=== PATIENT | male | born 1950 | race Caucasian/White ===

== ENCOUNTER 2018-03-05 22:27 | Inpatient (IN) | payer MEDICARE, BC ==
[2018-03-05 22:50] LABS: #Basophils 0.1 thou/uL (0.0-0.2); #Eosinphils 0.3 thou/uL (0.0-0.7); #Lymphocytes 1.8 thou/uL (1.20-3.40); #Monocytes 0.5 thou/uL (0.11-0.59); #Neutrophils 3.1 thou/uL (1.40-6.50); %Basophils 1.7 % (0.0-1.0); %Eosinophils 4.5 % (0.0-10.0); %Lymphocytes 30.8 % (21.0-51.0); %Monocytes 8.7 % (0.0-10.0); %Neutrophils 54.3 % (42.0-75.0); Hemoglobin 15.7 g/dL (14.0-18.0); Mean Corpuscular HGB CONC 33.6 g/dL (32.0-36.0); Mean Corpuscular Hemoglobin 30.7 pg (27.0-31.0); Mean Corpuscular Volume 91.5 fL (78.0-98.0); Mean Platelet Volume 6.8 fL (7.4-10.4); Platelet Count 228 thou/uL (130-400); RBC Distribution Width 11.4 % (11.5-14.5); Red Blood Cell (RBC) Count 5.11 mill/uL (4.70-6.10); White Blood Cell (WBC) Count 5.7 thou/uL (4.8-10.8)
[2018-03-05] MEDS ORDERED: Nitroglycerin 2% Ointment 1 INCH/1 GM Packet ONE (23:08)
[2018-03-05] MEDS ORDERED: Nitroglycerin 0.4 MG TAB (25 Tab Bottle) ONE (23:08)
[2018-03-05 23:11] LABS: CKMB 2.9 ng/mL (0-6.6); Troponin I 0.037 ng/mL (< 0.028)
[2018-03-05 23:12] LABS: ALT (SGPT) 18 U/L (8-55); AST (SGOT) 22 U/L (5-34); Albumin 4.4 g/dL (3.4-4.8); Alkaline Phosphatase 50 U/L (40-150); Anion Gap 15 mmol/L (10-20); BUN (Urea Nitrogen) 14 mg/dL (8.4-25.7); Bilirubin, Total 0.5 mg/dL (0.2-1.2); CK (CPK) 120 U/L (30-200); Calc. Creatinine Clearance 0 mL/min (70-130); Calcium 9.6 mg/dL (7.8-10.44); Carbon Dioxide 22 mmol/L (23-31); Chloride 107 mmol/L (98-107); Estimated GFR-MDRD 75; Globulin 3.3 g/dL (2.4-3.5); Glucose 137 mg/dL (80-115); Potassium 4.4 mmol/L (3.5-5.1); Protein, Total 7.7 g/dL (5.8-8.1); Sodium 140 mmol/L (136-145)
--- NOTE | 2018-03-05 23:14 | RAD ---
PORTABLE CHEST: History: Chest pain FINDINGS: Heart size and mediastinum are within normal limits. Lungs are clear of infiltrates. There are no sig ns of failure. An azygous lobe is incidentally seen. Post-operative changes of both shoulders. IMPRESSION: No active intrathoracic disease. POS: [facility]
[2018-03-06 02:38] LABS: Troponin I 0.396 ng/mL (< 0.028)
[2018-03-06] MEDS: Enoxaparin Sodium 100 MG/ML SYRINGE SC SCH ×2 (03:06→16:53)
[2018-03-06 05:14] LABS: Troponin I 0.524 ng/mL (< 0.028)
[2018-03-06] MEDS ORDERED: Atorvastatin Calcium 20 MG TAB PO SCH (05:45)
[2018-03-06] MEDS ORDERED: Lisinopril 10 MG TAB PO SCH (05:45)
--- NOTE | 2018-03-06 07:59 | HP ---
PRIMARY CARE PROVIDER: [facility] call admission for [facility]. HISTORY OF PRESENT ILLNESS: The patient has not seen a physician in many years, presents with pain i n his left upper chest, vague into his left shoulder, into his left arm, lasted a couple of hours off and on came and went. No associated symptoms of nausea, sweats, etc. PAST MEDICAL HISTORY: No medical problems. MEDICATIONS: None. ALLERGIES: None. PAST SURGICAL HISTORY: Abdominal surgery x2 for umbilical hernia, bilateral carpal tunnel surgery, b ilateral shoulder surgery for rotator cuff problems. Lumbar spine surgery L1-L3. FAMILY HISTORY: Only coronary artery disease in his father at 87 who . No diabetes. SOCIAL HISTORY: , no tobacco, no alcohol. CODE STATUS: Full code status. next of kin. REVIEW OF SYSTEMS: GENERAL: No headaches, dizziness or fainting. EYES: No double vision, blurred vision, flashing lights. ENT: No ear pain or drainage. No nasal bleeding. No trouble swallowing. CARDIAC: No pressure, chest pain, orthopnea or paroxysmal nocturnal dyspnea. RESPIRATORY: No cough, wheezing or asthma. GASTROINTESTINAL: No nausea, vomiting, abdominal pain, diarrhea or constipation. GENITOURINARY: No hematuria, dysuria. MUSCULOSKELETAL: No pain or swelling in his legs. PSYCHIATRIC: No anxiety, depression. NEUROLOGICAL: No strokes, seizures or focal weakness. SKIN: No bruising, bleeding or rash. HEME/LYMPH: No tender or swollen lymph nodes in axilla, inguinal or cervical area. PHYSICAL EXAMINATION: GENERAL: Alert, cooperative, pleasant gentleman. at bedside. VITAL SIGNS: Blood pressure 157/84, pulse 50-60, respirations 14-18. HEENT: Reveal pupils equal, round, and reactive to light. Extraocular movements are intact. Sclera e white. Tympanic membranes clear. Nose clear. Throat clear. NECK: Supple, without jugular venous distention, adenopathy or thyromegaly. CHEST: Clear to auscultation and percussion. HEART: Regular rate and rhythm. First and second heart sounds are clear. There are no murmurs or g allops. ABDOMEN: Soft, bowel sounds are normal. There is no hepatosplenomegaly, no mass, no rebound. EXTREMITIES: Reveal no cyanosis, clubbing or edema. PULSES: Carotid, radial, femoral, and dorsalis pedis pulses intact. SKIN: Warm and dry without bruises or rash. HEME/LYMPH: No tender or swollen lymph nodes in axilla, inguinal or cervical area. NEUROLOGIC: Cranial nerves II-XII are intact. Moves all extremities. EKG normal, reviewed by me. Chest x-ray: No cardiomegaly, CHF or infiltrate, reviewed by me. LABORATORY: CBC normal. Comp metabolic profile normal except for a CO2 of 22 and a glucose of 137. Cardiac enzymes, troponin, 0.037, 0.396, 0.524, 0.444. ADMITTING DIAGNOSES: 1. Chest pain, acute coronary syndrome. 2. Elevated blood pressure. PLAN: The patient has been given aspirin and Lovenox. The patient is n.p.o., we will discuss with C ardiology telecommunications facility examiner before ordering stress test or cardiac catheterization.
[2018-03-06] MEDS ORDERED: Ondansetron PF 4 MG/2 ML Vial IVP PRN (08:12)
[2018-03-06] MEDS ORDERED: Acetaminophen 325 MG TAB PO PRN (08:12)
[2018-03-06] MEDS ORDERED: Zolpidem Tartrate 5 MG TAB PO PRN (08:12)
--- NOTE | 2018-03-06 11:28 | CON ---
DATE OF CONSULTATION: 03/06/2018 CARDIOLOGY CONSULTATION INDICATION FOR CONSULTATION: A 67-year-old patient with chest pain. HISTORY OF PRESENT ILLNESS: This very pleasant appearing gentleman was going to mosque yesterday when he noticed some pain in his left upper chest area, which radiated down to the left arm, lasted a couple of hours. He reported to the hospital. EKG is unremarkable. Cardiac enzymes are indeterminate. He has had no previous cardiac history that we are aware of. He did smoke in the past , but stopped many years ago. He has not seen a physician for many years. He is uncertain about his cholesterol level, but was always told in the past that it was okay. He has no history of diabetes or hypertension according to the patient. He has been not taking any medications recently as he has not been followed by the physician. ALLERGIES: None. PAST MEDICAL HISTORY: Significant for a hernia repair and then repeat hernia repair for repair. He has had bilateral carpal tunnel syndrome repair, bilateral shoulder surgery for rotator cuff problems. He has also had a lower back surgery, L1-L3. FAMILY HISTORY: Unremarkable for any early heart disease. He had his father who at 87 years old who apparently had some history of coronary artery disease. SOCIAL HISTORY: He is . He has no alcohol or tobacco abuse. He is retired. REVIEW OF SYSTEMS: A 12-point review of systems is unremarkable except what was noted in the history of the present illness. PHYSICAL EXAMINATION: GENERAL: Reveals a very pleasant, well-developed, well-nourished gentleman, who is in no acute distress. He is alert and oriented. VITAL SIGNS: Blood pressure 131/75, he is afebrile, heart rate is 55 and regular, respirations are 20, O2 saturation 96%. HEENT: Shows the head to be normocephalic and atraumatic. Carotid pulses are present. There were no bruits. There is no JVD. The thyroid is not enlarged. Oral mucosa appeared to be pink and moist. CHEST: Clear to auscultation without rales, rhonchi or wheezing. CARDIOVASCULAR: Exam reveals a regular rate and rhythm with normal S1 and S2. I cannot hear an S3 nor an S4. There were no significant murmurs, heaves, thrills, bruits or rubs. ABDOMEN: Shows a well-healed surgical incision after hernia repairs. He has positive bowel sounds. There is no organomegaly or masses noted. Femoral pulses are present. EXTREMITIES: Show no clubbing, cyanosis or edema. Pedal pulses are also present. NEUROLOGIC: The patient appears to be intact. LABORATORY AND X-RAY FINDINGS: EKG shows a sinus rhythm with no acute changes. His laboratory data shows a hemoglobin of 15.7, WBC of 5.7. Troponin I is indeterminate at 0.037, increased up to a peak of 0.5 and is decreasing down to 0.44. MB was 2.9. His potassium is 4.4. Blood sugar was 137, which is somewhat elevated obviously, he will to have further evaluation. ASSESSMENT AND PLAN: 1. Chest pain, somewhat atypical, but with minimal risk factors of coronary artery disease. He did smoke in the past. He is a male over 55 years old and has some elevation of the blood sugar, which may indicate diabetes. We will plan at this time for a stress test since the cardiac enzymes are now trending downwards and MB remained normal. If the stress test is abnormal, then he will need to undergo cardiac catheterization. 2. History of abnormal blood sugars. We will need to follow this to ensure that the patient does not have diabetes and if so, we will need to start medications. I do not see a recent cholesterol level on this patient. He says he has not had a cholesterol problem in the past, but I am not sure that he knows whether or not he does have hypercholesterolemia. Please note also that the patient did tell me that he did have a history of hemochromatosis . He has given blood several times, but there are no records of this that I can determine and also at this time, the hemoglobin is slightly elevated, but not significantly as one would expect with hemochromatosis. He may need further evaluation or GI evaluation consultation to determine the true diagnosis of whether or not he has hemochromatosis or not. He does not have any liver tenderness. The liver enzymes appear to be normal. MTDD
[2018-03-06] MEDS: Aspirin 325 MG TAB PO SCH (12:08)
[2018-03-06] MEDS ORDERED: Regadenoson 0.4 MG/5 ML SYRINGE ONE (12:13)
[2018-03-06 13:32] LABS: Hemoglobin 14.9 g/dL (14.0-18.0); Platelet Count 223 thou/uL (130-400)
[2018-03-06 13:44] LABS: Calc. Creatinine Clearance 118 mL/min (70-130); Estimated GFR-MDRD Greater than 90
--- NOTE | 2018-03-06 14:18 | NM ---
NUCLEAR MEDICINE CARDIAC STRESS AND EJECTION FRACTION: HISTORY: Chest pain. COMPARISON: None. TECHNIQUE: Stress and rest performed after the intravenous administration of 33 and 10.6 mCi 99m sestamibi. There is adequate left ventricular uptake of radiotracer. There is scar of the left ventricular apex as well as sujit-infarct ischemia. There is hypokinesia of the inferior wall and apex. The ejection fraction is 56%. IMPRESSION: 1. Scar of the left ventricular apex with sujit-infarct ischemia. 2. Hypokinesia of the inferior wall and apex. 3. Ejection fraction 56%. POS: [facility]
--- NOTE | 2018-03-06 14:34 | PDOC.EVN ---
Event Note - Event Note Event Note: stress test pos, cath tomorrow. iron studies, HgA1c, lipid profile ordered
[2018-03-06 15:10] LABS: Cardiac Risk 4.9 (Less than 4.5)
[2018-03-06] MEDS: Atorvastatin Calcium 20 MG TAB PO SCH (20:40)
[2018-03-07] MEDS: Aspirin 325 MG TAB PO SCH (03:42)
[2018-03-07] MEDS: Lisinopril 10 MG TAB PO SCH (03:42)
[2018-03-07 04:15] LABS: Anion Gap 12 mmol/L (10-20); BUN (Urea Nitrogen) 14 mg/dL (8.4-25.7); Calc. Creatinine Clearance 100 mL/min (70-130); Carbon Dioxide 24 mmol/L (23-31); Chloride 106 mmol/L (98-107); Estimated GFR-MDRD 80; Glucose 124 mg/dL (80-115); Potassium 3.9 mmol/L (3.5-5.1); Sodium 138 mmol/L (136-145)
[2018-03-07] MEDS ORDERED: Lidocaine 1% (PF) 30 ML VIAL ONE (07:06)
[2018-03-07] MEDS ORDERED: Heparin 10,000 UNITS/1 ML VIAL ONE (08:36)
[2018-03-07] MEDS ORDERED: Nitroglycerin 100MG/250ML BOT 250 ML ONE (08:36)
[2018-03-07] MEDS ORDERED: Verapamil 5 MG/2 ML VIAL ONE (08:36)
[2018-03-07] MEDS ORDERED: Acetaminophen/Codeine 30-300mg Tablet PO PRN ×2 (09:45)
[2018-03-07] MEDS ORDERED: Carvedilol 3.125 MG TAB PO SCH ×3 (09:45→17:00)
[2018-03-07] MEDS ORDERED: Nitroglycerin 0.4 MG TAB (25 Tab Bottle) SL PRN (09:45)
[2018-03-07] MEDS ORDERED: Sodium Chloride 0.9% 200 ML IV SCH (09:45)
[2018-03-07] MEDS ORDERED: traMADol HCl 50 MG TAB PO PRN (09:45)
--- NOTE | 2018-03-07 10:03 | PDOC.PN ---
- Subjective Encounter Start Date: 03/07/18 Encounter Start Time: 10:00 Patient lying in bed with family members at bedside, he recently returned from [facility] which found multi-vessel disease. He denies chest pain, shortness of breath at this time. He denies having PCP, but a local PCP list will be provided to patient prior to discharge. No nausea/vomiting/diarrhea. - Objective Resuscitation Status: Resuscitation Status FULL:Full Resuscitation MAR Reviewed: Yes Vital Signs & Weight: Vital Signs (12 hours) Temp Pulse Resp BP BP Pulse Ox 03/07/18 07:15 98.2 F 53 L 16 127/71 97 03/07/18 03:42 141/85 H 03/07/18 03:38 98.1 F 58 L 18 141/85 H 98 Weight Weight 198 lb 3.2 oz I&O: 03/06/18 03/07/18 03/08/18 06:59 06:59 06:59 Intake Total 60 950 Output Total 525 Balance -465 950 Result Diagrams: 03/06/18 07:11 03/07/18 03:42 Radiology Reviewed by me: Yes EKG Reviewed by me: Yes Phys Exam - Physical Examination Constitutional: NAD HEENT: PERRLA, moist MMs, sclera anicteric, oral pharynx no lesions Neck: no nodes, no JVD, supple Respiratory: no wheezing, no rales, no rhonchi, clear to auscultation bilateral Cardiovascular: RRR, no significant murmur, no rub, gallop Gastrointestinal: soft, non-tender Musculoskeletal: no edema, pulses present Neurological: non-focal, normal sensation, moves all 4 limbs Lymphatic: no nodes Psychiatric: normal affect, A&O x 3 Skin: no rash, normal turgor, cap refill <2 seconds Dx/Plan (1) CAD (coronary artery disease) Code(s): I25.10 - ATHSCL HEART DISEASE OF [place] CORONARY ARTERY W/O ANG PCTRS Status: Acute (2) Multi-vessel coronary artery stenosis Code(s): I25.10 - ATHSCL HEART DISEASE OF [place] CORONARY ARTERY W/O ANG PCTRS Status: Acute (3) HTN (hypertension) Code(s): I10 - ESSENTIAL (PRIMARY) HYPERTENSION Status: Acute Qualifiers: Hypertension type: essential hypertension Qualified Code(s): I10 - Essential (primary) hypertension - Plan cont current plan of care, plan discussed w/ family * Patient s/p LHC, it was determined patient suffering from multi-vessel disease at that time. Dr Colon consult placed for Dr Paiz CV surgery for further evaluate patient for possible CABG. * Continue optimum medical management with ASA, Lipitor, Coreg and Lisinopril. * Cardiology services following along s/p C * Provide PCP list to patient as he will require appropriate f/u at outpatient
--- NOTE | 2018-03-07 10:16 | PDOC.EVN ---
Event Note - Event Note Event Note: pos cath, probable CABG. discussed status and plan with Trino SANCHEZ
[2018-03-07] MEDS ORDERED: Iopamidol 370 76% 100 ML VIAL ONE (11:26)
[2018-03-07] MEDS ORDERED: Communication Order-Pharmacy FS SCH (13:50)
[2018-03-07] MEDS ORDERED: Diazepam 5 MG TAB PO PRN (13:50)
[2018-03-07] MEDS: Carvedilol 3.125 MG TAB PO SCH (18:35)
--- NOTE | 2018-03-07 20:28 | CON ---
DATE OF CONSULTATION: 03/07/2018 REASON FOR CONSULTATION: Evaluate the patient for coronary artery bypass grafting. HISTORY OF PRESENT ILLNESS: Mr. Reddy is a 67-year-old gentleman who presented with chest pain. He was gathering eggs at home and had unrelenting pain in his left chest and left arm. He could not ge t it to go away and asked his to bring into the emergency room. EKG and enzymes were normal. Mikaela anglin does not have a recent tobacco use history. He has no coronary artery history. He was taken today for cardiac catheterization, which has revealed severe 3-vessel disease. Ejection fraction is appro ximately 60%-65%. I have been asked to see him to discuss coronary artery bypass grafting. PAST MEDICAL HISTORY: Degenerative joint disease. PAST SURGICAL HISTORY: 1. Umbilical hernia repair x2. 2. Bilateral carpal tunnel repairs. 3. Bilateral shoulder surgery for rotator cuff problems. 4. Lumbar spinal surgery performed in [place] SOCIAL HISTORY: He is . He drinks wine that he makes at home. He does not use tobacco. He is retired and works around his place at home. He also plays in a . FAMILY HISTORY: Negative. REVIEW OF SYSTEMS: Ten point review of systems is performed and is negative except as above. PHYSICAL EXAMINATION: GENERAL: Well-developed, well-nourished male, in no acute distress. VITAL SIGNS: Height 5 feet 8 inches, weight 198 pounds, BSA is 2.08. Temperature is 98.3, pulse is 60 and regular, blood pressure 139/75. HEENT: Sclerae nonicteric. Pupils equal, round bilaterally. NECK: Supple. He has no carotid bruits. CHEST: Clear bilaterally. HEART: Rhythm is regular without murmur. ABDOMEN: Soft and nontender without mass. EXTREMITIES: No cyanosis, clubbing or edema. VASCULAR: Palpable carotid, radial, femoral, dorsalis pedis pulses bilaterally. VENOUS: There are no venous varicosities or venous stasis changes. LYMPHATICS: No lymphedema or lymphadenopathy. PSYCHIATRIC: The patient is awake, alert, and oriented to person, place, and time. ASSESSMENT AND PLAN: Mr. Reddy is a 67-year-old gentleman with severe 3-vessel disease and preserve d left ventricular function. Risks, benefits, and options to coronary artery bypass grafting have be en discussed. Potential targets included LAD, D1, D2, ramus, OM, and distal right coronary.
[2018-03-07] MEDS: Atorvastatin Calcium 20 MG TAB PO SCH (21:32)
[2018-03-08] MEDS ORDERED: CEFAZOLIN/Water 2 GM/20 ML SYRINGE ONE (06:04)
[2018-03-08] MEDS: Lisinopril 10 MG TAB PO SCH (06:05)
[2018-03-08] MEDS: Carvedilol 3.125 MG TAB PO SCH ×2 (06:05→16:16)
[2018-03-08] MEDS ORDERED: Vecuronium 10 MG VIAL ONE ×2 (06:22→14:36)
[2018-03-08] MEDS ORDERED: Albumin 5% 500 ML ONE (06:26)
[2018-03-08] MEDS ORDERED: Fentanyl 100 MCG/2 ML VIAL ONE (06:38)
[2018-03-08] MEDS ORDERED: Dexmedetomidine 200 MCG/2 ML VIAL ONE (06:38)
[2018-03-08] MEDS ORDERED: Midazolam HCl 2 mg/2 ml Vial ONE (06:38)
[2018-03-08] MEDS ORDERED: Midazolam HCl 5 mg/5 ml Vial ONE (06:38)
[2018-03-08] MEDS ORDERED: Calcium Chloride 1 GM/10 ML Abboject SYRINGE ONE ×2 (06:58→14:36)
[2018-03-08] MEDS ORDERED: Thrombin 5000 UNITS/5 ML VIAL ONE ×2 (06:58→14:36)
[2018-03-08] MEDS ORDERED: Heparin 10,000 UNITS/1 ML VIAL 30,000 UNITS in Sodium Chloride 0.9% 1,000 ML FS SCH (07:00)
[2018-03-08] MEDS ORDERED: Sodium Chloride 0.9% 10 ML ONE (09:40)
[2018-03-08] MEDS ORDERED: Insulin Regular 300 UNITS/3 ML VIAL ONE (11:19)
[2018-03-08] MEDS ORDERED: Albumin 5% 250 ML ONE (14:11)
[2018-03-08 14:13] LABS: Actual Bicarbonate (HCO3a) 24.7 mEq/L (22-28); Base Excess (BEa) -3.1 mEq/L (-2.0 to +3.0); CO2 Tension 56.4 mmHg (35.0-45.0); Calcium, Ionized 1.12 mmol/L (1.12-1.30); Carboxyhemoglobin (COHb) 1.1 gm% (0.0-3.0); Hemoglobin (Hb) 13.6 g/dL (14.0-18.0); O2 Tension (PaO2) 74.9 mmHg (> 80.0); Potassium - ABG Lab 4.33 mmol/L (3.70-5.30); pH, Arterial 7.26 (7.35-7.45)
[2018-03-08 14:21] LABS: Hemoglobin 13.3 g/dL (14.0-18.0); Platelet Count 132 thou/uL (130-400)
[2018-03-08 14:22] LABS: Puncture Site ALINE
[2018-03-08] MEDS ORDERED: Papaverine 60 MG/2 ML VIAL ONE (14:36)
[2018-03-08] MEDS ORDERED: Sodium Bicarb 50 MEQ/50 ML VIAL ONE (14:36)
[2018-03-08] MEDS ORDERED: Magnesium 5 GM/10 ML VIAL ONE (14:36)
[2018-03-08] MEDS ORDERED: Potassium Chloride 60 MEQ/30 ML VIAL ONE (14:36)
[2018-03-08] MEDS ORDERED: Aminocaproic Acid 5 GM/20 ML VIAL ONE (14:36)
[2018-03-08] MEDS ORDERED: Lidocaine 2% PF 100 mg/5 ml Syringe ONE (14:36)
[2018-03-08] MEDS ORDERED: Heparin 5,000 UNITS/ML VIAL ONE (14:36)
[2018-03-08] MEDS ORDERED: PHENYLEPHRINE-NS 100 MCG/ML 10 ML SYRINGE ONE (14:36)
[2018-03-08] MEDS ORDERED: Ketorolac Tromethamine 30 MG/ML VIAL ONE (14:36)
[2018-03-08] MEDS ORDERED: Mannitol 12.5 GM/50 ML ONE (14:36)
[2018-03-08] MEDS ORDERED: Nitroglycerin 50 MG/250 ML BOT ONE (14:36)
[2018-03-08] MEDS ORDERED: Heparin 30,000 units/30 ml VIAL ONE (14:36)
[2018-03-08] MEDS ORDERED: Protamine Sulfate 250 MG/25 ML VIAL ONE (14:36)
[2018-03-08] MEDS ORDERED: ePHEDrine/0.9% NaCl/PF SYRINGE 50 mg/10 ml ONE (14:36)
[2018-03-08] MEDS ORDERED: Cardioplegic Soln 1,000 ML BAG ONE (14:36)
[2018-03-08 14:47] LABS: Calc. Creatinine Clearance 116 mL/min (70-130); Estimated GFR-MDRD Greater than 90
[2018-03-08 14:58] LABS: Actual Bicarbonate (HCO3a) 22.8 mEq/L (22-28); Base Excess (BEa) -4.3 mEq/L (-2.0 to +3.0); CO2 Tension 49.7 mmHg (35.0-45.0); Calcium, Ionized 1.07 mmol/L (1.12-1.30); Carboxyhemoglobin (COHb) 1.2 gm% (0.0-3.0); Hemoglobin (Hb) 13.5 g/dL (14.0-18.0); O2 Tension (PaO2) 86.2 mmHg (> 80.0); Potassium - ABG Lab 4.14 mmol/L (3.70-5.30); pH, Arterial 7.28 (7.35-7.45)
[2018-03-08 15:00] LABS: ALV-art Gradient 79.835 (0-20); Puncture Site ALINE
[2018-03-08] MEDS: Aspirin 325 MG TAB PO SCH (15:06)
[2018-03-08] MEDS ORDERED: Hetastarch 6% 500 ML 500 ML IVPB PRN (15:19)
[2018-03-08] MEDS ORDERED: Bisacodyl 5 MG TAB PO PRN (15:19)
[2018-03-08] MEDS ORDERED: Phenylephrine 10 MG/NS 250 ML 250 ML IVPB PRN (15:19)
[2018-03-08] MEDS ORDERED: Mag-Al 1200 mg/1200 mg/30 ML UDCUP PO PRN (15:19)
[2018-03-08] MEDS ORDERED: hydrALAZINE 20 MG/ML VIAL SLOW IVP PRN (15:19)
[2018-03-08] MEDS ORDERED: Guaifenesin DM 100-10/5 ML UDCUP PO PRN (15:19)
[2018-03-08] MEDS ORDERED: D5 1/2 NS w/20 mEq KCL 1,000 ML IV SCH (15:19)
[2018-03-08] MEDS ORDERED: Nitroglycerin 50 MG/250 ML BOT 250 ML IVPB PRN (15:19)
[2018-03-08] MEDS ORDERED: Fentanyl 100 MCG/2 ML VIAL SLOW IVP PRN ×2 (15:19)
[2018-03-08] MEDS ORDERED: Post-Op Insulin Drip Protocol IVPB ONE (15:19)
[2018-03-08] MEDS ORDERED: Potassium Chloride 20 MEQ/100 ML PREMIX BAG IVPB PRN (15:19)
[2018-03-08] MEDS ORDERED: Bisacodyl 10 MG SUPP PR PRN (15:19)
[2018-03-08] MEDS ORDERED: HYDROcodone/Acetaminophen 5/325 mg Tablet PO PRN (15:19)
[2018-03-08] MEDS ORDERED: Magnesium 2 GM/50 ML 2 GM in Premix Bag 1 BAG IVPB SCH (15:19)
[2018-03-08] MEDS ORDERED: Promethazine HCl 25 MG/ML VIAL IM PRN (15:19)
[2018-03-08] MEDS ORDERED: Acetaminophen 325 MG TAB PO PRN (15:19)
[2018-03-08] MEDS ORDERED: Norepinephrine 8 MG/0.9% NS 250 ML IVPB PRN (15:19)
[2018-03-08] MEDS ORDERED: Ondansetron PF 4 MG/2 ML Vial IVP PRN (15:19)
[2018-03-08 15:27] LABS: #Basophils 0.1 thou/uL (0.0-0.2); #Eosinphils 0.1 thou/uL (0.0-0.7); #Lymphocytes 1.5 thou/uL (1.20-3.40); %Basophils 0.5 % (0.0-1.0); %Eosinophils 0.8 % (0.0-10.0); %Monocytes 8.2 % (0.0-10.0); %Neutrophils 77.4 % (42.0-75.0); Hemoglobin 13.3 g/dL (14.0-18.0); Mean Corpuscular HGB CONC 32.9 g/dL (32.0-36.0); Mean Corpuscular Hemoglobin 30.5 pg (27.0-31.0); Mean Corpuscular Volume 92.7 fL (78.0-98.0); Mean Platelet Volume 6.9 fL (7.4-10.4); Platelet Count 130 thou/uL (130-400); RBC Distribution Width 11.3 % (11.5-14.5); Red Blood Cell (RBC) Count 4.35 mill/uL (4.70-6.10); White Blood Cell (WBC) Count 11.7 thou/uL (4.8-10.8)
[2018-03-08 15:33] LABS: INR-International Normal Ratio 1.2; PTT 29.6 SEC (22.9-36.1); Prothrombin Time 15.5 SEC (12.0-14.7)
[2018-03-08] MEDS ORDERED: Dextrose 5% in Water 1,000 ML IV PRN (15:35)
[2018-03-08] MEDS ORDERED: Dextrose 50% Abboject 50 ML SYRINGE SLOW IVP PRN (15:35)
[2018-03-08] MEDS ORDERED: Insulin Regular 300 UNITS/3 ML VIAL SC PRN (15:35)
[2018-03-08] MEDS: CEFAZOLIN/Water 2 GM/20 ML SYRINGE SLOW IVP SCH ×2 (15:53→23:18)
[2018-03-08 16:02] LABS: Anion Gap 11 mmol/L (10-20); BUN (Urea Nitrogen) 12 mg/dL (8.4-25.7); Calc. Creatinine Clearance 115 mL/min (70-130); Calcium 7.5 mg/dL (7.8-10.44); Carbon Dioxide 21 mmol/L (23-31); Chloride 113 mmol/L (98-107); Estimated GFR-MDRD Greater than 90; Glucose 114 mg/dL (80-115); Potassium 4.5 mmol/L (3.5-5.1); Sodium 140 mmol/L (136-145)
--- NOTE | 2018-03-08 16:05 | RAD ---
CHEST 1 VIEW: Date: 03/08/18 COMPARISON: 03/05/18. HISTORY: Status post open heart surgery. FINDINGS: Portable supine chest radiograph demonstrates sternotomy wires, mediastinal drainage catheter, and a right-sided central venous catheter. Normal cardiac silhouette. Pulmonary vessels and hilum are wily l. Small right-sided pleural effusion suspected. No pneumothorax on this supine projection. IMPRESSION: Findings compatible with recent open heart surgery. POS: [facility]
--- NOTE | 2018-03-08 17:14 | PDOC.CTH ---
Cardiology Progress Note - Subjective Pt. back from OR, s/p CABG x 6. Extubated and awake. No complaints at present. - Objective Vital Signs Temp Pulse Resp BP BP Pulse Ox 03/08/18 16:00 96.3 F L 03/08/18 14:27 96 03/08/18 14:15 97 03/08/18 06:05 145/78 H 03/08/18 05:20 97.7 F 71 16 125/70 97 Weight 197 lb 3.2 oz 03/07/18 03/08/18 03/09/18 06:59 06:59 06:59 Intake Total 950 440 270 Output Total 375 620 Balance 950 65 -350 - Physical Examination General/Neuro: alert & oriented x3 Neck: carotid US brisk Lungs: CTA Heart: RRR Abdomen: NT/ND - Labs Result Diagrams: 03/08/18 14:07 03/08/18 14:07 Troponin/CKMB CK-MB (CK-2) 2.9 ng/mL (0-6.6) 03/05/18 22:39 Troponin I 0.440 ng/mL (< 0.028) H* 03/06/18 07:11 - Assessment/Plan 1.CAD: s/p CABG x 6. TOMLINSON to LAD mid and distal(jump), SVG -> Ramus-Diag. ( jump), SVG-> OM, SVG-> distal RCA. 2. HTN: stable. Resume prior meds when taking po. Suggest betablockers, Lcua-I.
[2018-03-08] MEDS: Ketorolac Tromethamine 30 MG/ML VIAL IVP SCH ×2 (17:32→23:18)
--- NOTE | 2018-03-08 18:53 | OP ---
DATE OF SERVICE: 03/08/2018 PREOPERATIVE DIAGNOSIS: Coronary artery disease. POSTOPERATIVE DIAGNOSIS: Coronary artery disease. PROCEDURES: Coronary artery bypass grafting x6: 1. Left internal mammary artery in sequence to 1.25 mm mid LAD and 1.25 mm distal LAD. 2. Reverse saphenous vein in sequence to 1.5 mm ramus and 1.5 mm diagonal 3. Reverse saphenous vein to 1.5 mm OM. 4. Reverse saphenous vein to 2.0 mm distal RCA. SURGEONS: Marcell Paiz M.D. and Papa Lay MD ANESTHESIA: General endotracheal, Dr. Diony Mack. PUMP TIME: 88 minutes. CROSS-CLAMP TIME: 53 minutes. LOW CORE TEMP: 32-degree Celsius. DIGITAL TECHNICIAN: Di Odell. DRAINS: 24-[place] chest tubes x2. DRIPS: None. TRANSFUSIONS: None. PROCEDURE IN DETAIL: After consent was obtained, the patient was brought to operating room and place d in the supine position on the operating room table. Appropriate anesthetic monitor was placed and general anesthesia induced. Chest, abdomen, and legs were prepped and draped in usual sterile fashio n. Greater saphenous vein was harvested from the left lower extremity utilizing an endoscopic techni que from groin to ankle. Wounds irrigated and closed in layers. Median sternotomy was performed. L eft internal mammary artery was harvested as a pedicle graft. The patient was systemically hepariniz ed. Distal pedicle was divided and infused with papaverine. Thymic fat and pericardium were divided with electrocautery. Pericardial stay sutures were placed. Aortic and atrial cannulation performed . After adequate heparinization, retrograde prime was performed. The patient was placed on cardiopu lmonary bypass. Distal targets were marked. Aortic cross-clamp was applied and an antegrade sanguin ous cardioplegic arrest obtained. One liter of antegrade cold [place] cardioplegia was given. Topi vandana cold solution was used. Reverse saphenous vein was anastomosed to distal RCA and saphenous runni ng 7-0 Prolene suture. Anastomosis was tested and was hemostatic. Reverse saphenous vein was anasto mosed to OM in end-to-side fashion with running 7-0 Prolene suture. Anastomosis was tested and was h emostatic. A sequential saphenous vein was then anastomosed in a yioa-ly-ffrc fashion with the ramus in end-to-side fashion with the diagonal with 7-0 Prolene suture. Anastomoses were inspected and th ey were hemostatic. Mammary artery was then anastomosed in a sequential fashion with the mid LAD in a amfj-vl-exeg fashion and the distal LAD in end-to-side fashion with running 7-0 Prolene suture. An astomoses were inspected and they were good hemostasis . On release of the mammary clamps, good distal flow. Cross-clamp was removed and partial occluding clamp placed. Saphenous vein to the OM and right coronary were anastomosed to aortic root. The sequential saphenous vein was anastomosed to the martins of the OM graft. Partial occluding clamp was removed and grafts deaired. Anastomoses were inspected for hemostasis, which was good. The patient was warmed and weaned from cardiopulmonary by pass. After resumption of sinus rhythm, good hemodynamics, and temperature greater than 36.5, bypass was discontinued. Transfusions were given. A 24-[place] chest tubes x2 were placed in mediastinum. Decannulation was performed and pursestring sutures secured. Vancomycin paste was placed on the milena rnal edges. Hemostasis was vigorously ensured within the mediastinum. Sternum was then closed with #7 wire. Sternum was treated with platelet-rich plasma and wires twisted. Wounds were irrigated, tr eated with platelet-poor plasma, and closed in multiple layers. Needle, sponge, and instrument count s were all reported as correct at the end of the procedure. The patient was awakened, extubated, and transferred to the intensive care unit in stable condition.
[2018-03-08] MEDS: Atorvastatin Calcium 20 MG TAB PO SCH (20:43)
[2018-03-08] MEDS ORDERED: Famotidine/PF 20 mg/2ml Vial SLOW IVP SCH (21:00)
[2018-03-08 21:23] LABS: Hemoglobin 12.8 g/dL (14.0-18.0)
[2018-03-08 21:35] LABS: Potassium 4.4 mmol/L (3.5-5.1)
[2018-03-09] MEDS: HYDROcodone/Acetaminophen 5/325 mg Tablet PO PRN ×2 (00:16→10:17)
[2018-03-09] MEDS ORDERED: HEXTEND 6% LR 500ML 500 ML IVPB PRN (01:15)
[2018-03-09 04:46] LABS: Anion Gap 6 mmol/L (10-20); BUN (Urea Nitrogen) 15 mg/dL (8.4-25.7); Calc. Creatinine Clearance 109 mL/min (70-130); Calcium 7.5 mg/dL (7.8-10.44); Carbon Dioxide 25 mmol/L (23-31); Chloride 111 mmol/L (98-107); Estimated GFR-MDRD Greater than 90; Glucose 123 mg/dL (80-115); Potassium 4.3 mmol/L (3.5-5.1); Sodium 138 mmol/L (136-145)
[2018-03-09 04:55] LABS: #Lymphocytes 1.2 thou/uL (1.20-3.40); #Monocytes 0.5 thou/uL (0.11-0.59); #Neutrophils 4.4 thou/uL (1.40-6.50); %Eosinophils 0.5 % (0.0-10.0); %Lymphocytes 19.7 % (21.0-51.0); %Monocytes 8.6 % (0.0-10.0); %Neutrophils 71.1 % (42.0-75.0); Hemoglobin 10.5 g/dL (14.0-18.0); Mean Corpuscular HGB CONC 33.2 g/dL (32.0-36.0); Mean Corpuscular Hemoglobin 30.8 pg (27.0-31.0); Mean Corpuscular Volume 92.8 fL (78.0-98.0); Mean Platelet Volume 6.6 fL (7.4-10.4); Platelet Count 111 thou/uL (130-400); RBC Distribution Width 11.2 % (11.5-14.5); White Blood Cell (WBC) Count 6.2 thou/uL (4.8-10.8)
[2018-03-09] MEDS: Ketorolac Tromethamine 30 MG/ML VIAL IVP SCH ×3 (05:34→18:37)
--- NOTE | 2018-03-09 08:01 | PDOC.PN ---
- Subjective Encounter Start Date: 03/09/18 Encounter Start Time: 07:59 Subjective: doing great, up in chair - Objective Resuscitation Status: Resuscitation Status FULL:Full Resuscitation MAR Reviewed: Yes Vital Signs & Weight: Vital Signs (12 hours) Temp Pulse Ox 03/09/18 04:00 99.0 F 03/09/18 00:00 98.6 F 03/08/18 20:00 97.2 F L 99 Weight Weight 214 lb 8.156 oz Most Recent Monitor Data Heart Rate from ECG 91 NIBP 107/72 NIBP BP-Mean 83 Respiration from ECG 18 SpO2 98 I&O: 03/08/18 03/09/18 03/10/18 06:59 06:59 06:59 Intake Total 440 1813 Output Total 375 1505 Balance 65 308 Result Diagrams: 03/09/18 04:24 03/09/18 04:24 Additional Labs: Accuchecks 03/09/18 03/09/18 03/08/18 04:19 00:31 19:44 POC Glucose 126 H 111 H 100 03/08/18 03/08/18 03/08/18 14:10 13:44 12:37 POC Glucose 108 109 135 H 03/08/18 03/08/18 03/08/18 11:55 11:18 10:16 POC Glucose 162 H 179 H 116 H Phys Exam - Physical Examination Neck: no JVD Respiratory: clear to auscultation bilateral chest tubes in place Cardiovascular: RRR, no significant murmur Gastrointestinal: soft, positive bowel sounds Neurological: non-focal Dx/Plan (1) Dyslipidemia Code(s): E78.5 - HYPERLIPIDEMIA, UNSPECIFIED Status: Acute (2) Status post aorto-coronary artery bypass graft Code(s): Z95.1 - PRESENCE OF AORTOCORONARY BYPASS GRAFT Status: Acute (3) CAD (coronary artery disease) Code(s): I25.10 - ATHSCL HEART DISEASE OF [place] CORONARY ARTERY W/O ANG PCTRS Status: Acute Qualifiers: Coronary Disease-Associated Artery/Lesion type: ute artery [place] vs. transplanted heart: ute heart Associated angina: without angina Qualified Code(s): I25.10 - Atherosclerotic heart disease of [place] coronary artery without angina pectoris (4) HTN (hypertension) Code(s): I10 - ESSENTIAL (PRIMARY) HYPERTENSION Status: Acute Qualifiers: Hypertension type: essential hypertension Qualified Code(s): I10 - Essential (primary) hypertension (5) Multi-vessel coronary artery stenosis Code(s): I25.10 - ATHSCL HEART DISEASE OF [place] CORONARY ARTERY W/O ANG PCTRS Status: Acute - Plan post cabg day 1, doing well -: needs asa, statin, b-courtney, RONALDO -: cont to follow * .
--- NOTE | 2018-03-09 08:42 | PDOC.CTH ---
<Sally Aguilar - Last Filed: 03/09/18 08:42> Cardiology Progress Note - Subjective The pt seen and examined. No overnight events. No cardiac complaints. He is up to chair this AM without any difficulties. - Objective Vital Signs Temp 03/09/18 04:00 99.0 F 03/09/18 00:00 98.6 F Weight 214 lb 8.156 oz 03/08/18 03/09/18 03/10/18 06:59 06:59 06:59 Intake Total 440 1813 Output Total 375 1505 Balance 65 308 - Physical Examination General/Neuro: alert & oriented x3 Neck: no JVD present Lungs: CTA Heart: RRR Abdomen: soft Extremities: other: (No edema) - Labs Result Diagrams: 03/09/18 04:24 03/09/18 04:24 Troponin/CKMB CK-MB (CK-2) 2.9 ng/mL (0-6.6) 03/05/18 22:39 Troponin I 0.440 ng/mL (< 0.028) H* 03/06/18 07:11 - Assessment/Plan 1. CAD with s/p CABG x 6 on 03/08/18 with TOMLINSON to LAD mid and distal(jump), SVG -> Ramus-Diag. ( jump), SVG-> OM, SVG-> distal RCA. On BBlocker, RONALDO, ASA 325mg qd, and Lipitor 40mg qd. 2. HTN: stable with current meds; cont. to monitor 3. Dyslipidemia: on Statin MAR reviewed Review of Systems - Review of Systems Constitutional: reports: no symptoms reported EENTM: reports: no symptoms reported Respiratory: reports: no symptoms reported Cardiac (ROS): reports: no symptoms reported ABD/GI: reports: no symptoms reported : reports: no symptoms reported Musculoskeletal: reports: no symptoms reported <Daryl Colon - Last Filed: 03/09/18 18:31> Cardiology Progress Note - Objective Vital Signs Temp Pulse Resp BP BP Pulse Ox 03/09/18 16:00 97.7 F 66 15 102/58 L 99 03/09/18 15:00 99 03/09/18 11:00 98.3 F 03/09/18 10:16 145/78 H 03/09/18 08:00 99 F 84 L Weight 214 lb 8.156 oz 03/08/18 03/09/18 03/10/18 06:59 06:59 06:59 Intake Total 440 1813 970 Output Total 375 1505 860 Balance 65 308 110 - Labs Result Diagrams: 03/09/18 04:24 03/09/18 04:24 Troponin/CKMB CK-MB (CK-2) 2.9 ng/mL (0-6.6) 03/05/18 22:39 Troponin I 0.440 ng/mL (< 0.028) H* 03/06/18 07:11 - Assessment/Plan Pt. seen and eval. by me. I agree with the A/P by the LEAN LEADER. He is doing well s/p CABG. Chest clear. RRR.
[2018-03-09] MEDS ORDERED: Aspirin 325 MG TAB PO SCH (09:00)
--- NOTE | 2018-03-09 09:53 | RAD ---
PORTABLE CHEST: HISTORY: Postop open heart surgery. COMPARISON: 03/18/2018 study. FINDINGS: Heart size is enlarged. There are postop sternotomy changes. The right subclavian line is unchanged in position. No infiltrative process. IMPRESSION: Essentially stable exam. POS: [facility]
[2018-03-09] MEDS: Carvedilol 3.125 MG TAB PO SCH ×2 (10:14→17:11)
[2018-03-09] MEDS: Lisinopril 10 MG TAB PO SCH (10:16)
[2018-03-09] MEDS: Furosemide 40 MG TAB PO SCH ×2 (10:16→15:24)
[2018-03-09] MEDS: Famotidine 20 MG TAB PO SCH ×2 (10:18→20:55)
[2018-03-09] MEDS: CEFAZOLIN/Water 2 GM/20 ML SYRINGE SLOW IVP SCH (10:19)
--- NOTE | 2018-03-09 11:50 | CON ---
DATE OF CONSULTATION: 03/09/2018 SERVICE: Pulmonary Medicine. REASON FOR CONSULTATION: ICU patient. HISTORY OF PRESENT ILLNESS: The patient is a 67-year-old white male with past medical history significant for coronary artery disease. He presented to the hospital on 03/06/2018 with complaints of chest discomfort. He underwent a nuclear stress test. This was abnormal, prompting a cardiac catheterization. This demonstrated severe coronary artery disease. He underwent a coronary artery bypass graft yesterday. He is recovering very nicely from that procedure. He currently has some chest discomfort with deep breathing and coughing, but outside of this, he is actually doing remarkable. His biggest complaint right now is right wrist pain. When he underwent cardiac catheterization, his wrist was hyperextended. This is now causing numbness in the first, second, third and half of the fourth digit. If it were not for that discomfort, he feels like he would have gotten some refreshing sleep last night. He denies any fevers or chills. He is coughing a little bit and bringing up some clear sputum. This seems to be new over the past 24 hours. PAST MEDICAL HISTORY: Coronary artery disease. PAST SURGICAL HISTORY: 1. Coronary artery bypass graft x6 vessels. 2. Abdominal surgery x2 for umbilical hernia. 3. Carpal tunnel surgery, bilateral. 4. Right wrist surgery, removing of bone from the wrist and placing it in a different area. 5. Shoulder surgery, bilateral for rotator cuff injuries. 6. Lumbar spine surgery, L1-L3. FAMILY HISTORY: Noncontributory. SOCIAL HISTORY: Negative for alcohol, tobacco or illicit drug use. He has no exposure to chemicals, dust, asbestos or tuberculosis. He is retired currently. He previously had a career as a law enforcement agent. ALLERGIES: No known drug allergies. MEDICATIONS: List of his inpatient medications were reviewed. No specific updates were made at this time. REVIEW OF SYSTEMS: General, head, ears, eyes, nose, throat, cardiovascular, respiratory, GI, , musculoskeletal, neurologic and skin is negative except as mentioned in the HPI. PHYSICAL EXAMINATION: VITAL SIGNS: Afebrile with a T-max of 99.0, pulse 85, blood pressure 109/73, respirations 15, saturation 95% on room air. GENERAL: The patient is awake and alert, in no apparent distress. LUNGS: Decent air entry. There is no prolonged expiratory phase or wheezing present. HEART: Normal rate, regular. ABDOMEN: Soft, nontender, nondistended. Bowel sounds are positive. MUSCULOSKELETAL: No cyanosis or clubbing. There is trace pitting in the bilateral lower extremities. NEUROLOGIC: Grossly nonfocal. LABORATORY DATA: WBC 6.2, hemoglobin 10.5, platelets 111,000. INR 1.2. PH 7.28, pCO2 49, pO2 86. Basic metabolic profile is otherwise unremarkable. Calcium 7.5. Ferritin is reduced. Cardiac enzymes are abnormal and previously were trending downward to 0.4. Liver function studies were unremarkable. IMAGING: Chest x-ray today demonstrates sternotomy wires are now present. Right-sided subclavian central venous catheter terminates in good position. Mediastinal drain is identified x2. ASSESSMENT: 1. Acute hypoxic and hypercapnic respiratory failure, resolved. 2. Coronary artery disease. 3. Coronary artery bypass graft x6 vessels, postop day 1. 4. 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 5. Obstructive sleep apnea, strongly suspected. DISCUSSION AND PLAN: I will put the patient on some gabapentin. Outside of this, routine postop management will be continued. Hopefully, the discomfort in the wrist will start to ebb away slowly. If it does not, we may need to consider advanced imaging. Pulmonary Critical Care will continue to follow along in this location. Of note, the patient has multiple features consistent with horrendous sleep apnea. We talked about what sleep apnea is, the risks of having [id number] sleep apnea (heart disease, dementia, stroke and kidney disease), but the patient is adamant that he would not be able to tolerate having anything on his face while sleeping at night and so he does not want to undergo a polysomnogram. Pulmonary will continue to follow in this location. 70 minutes have been devoted to this patient in various activities. I personally reviewed all imaging studies and laboratory data noted within this document. For fifty percent of this time, I was interacting with the patient at the bedside or coordinating care with the care team. For the remainder of the time I was immediately available to the patient in the hospital unit. FRANSISCO
[2018-03-09] MEDS: Magnesium 2 GM/50 ML 2 GM in Premix Bag 1 BAG IVPB SCH (13:36)
[2018-03-09] MEDS: Gabapentin 300 MG CAP PO SCH ×2 (15:01→20:55)
[2018-03-09] MEDS ORDERED: Mag-Al 1200 mg/1200 mg/30 ML UDCUP PO PRN (15:05)
[2018-03-09] MEDS ORDERED: Acetaminophen 325 MG TAB PO PRN (15:05)
[2018-03-09] MEDS ORDERED: Zolpidem Tartrate 5 MG TAB PO PRN (15:05)
[2018-03-09] MEDS ORDERED: Nitroglycerin 0.4 MG TAB (25 Tab Bottle) SL PRN (15:05)
[2018-03-09] MEDS ORDERED: Mineral Oil ENEMA PR PRN (15:05)
[2018-03-09] MEDS ORDERED: Bisacodyl 10 MG SUPP PR PRN (15:05)
[2018-03-09] MEDS ORDERED: Milk Of Magnesia 30 ML UDCUP PO PRN (15:05)
[2018-03-09] MEDS ORDERED: diphenhydrAMINE 25 MG CAP PO PRN (15:05)
[2018-03-09] MEDS ORDERED: Fentanyl 100 MCG/2 ML VIAL SLOW IVP PRN ×2 (15:05)
[2018-03-09] MEDS ORDERED: Guaifenesin DM 100-10/5 ML UDCUP PO PRN (15:05)
[2018-03-09] MEDS ORDERED: HYDROcodone/Acetaminophen 5/325 mg Tablet PO PRN (15:05)
[2018-03-09] MEDS ORDERED: Artificial Tears 18 DROP/0.9 ML EA EYE PRN (15:05)
[2018-03-09] MEDS ORDERED: Ondansetron PF 4 MG/2 ML Vial IVP PRN (15:05)
[2018-03-09] MEDS: Atorvastatin Calcium 40 MG TAB PO SCH (20:55)
[2018-03-10] MEDS: Ketorolac Tromethamine 30 MG/ML VIAL IVP SCH ×4 (00:02→18:31)
[2018-03-10 08:12] LABS: ALT (SGPT) 14 U/L (8-55); AST (SGOT) 21 U/L (5-34); Albumin 3.1 g/dL (3.4-4.8); Alkaline Phosphatase 24 U/L (40-150); Bilirubin, Direct 0.3 mg/dL (0.1-0.3); Magnesium 2.2 mg/dL (1.6-2.6); Protein, Total 4.4 g/dL (5.8-8.1)
[2018-03-10] MEDS ORDERED: Amiodarone HCl 150 MG, Admixture Fee 1 EACH in Dextrose 5% in Water 100 ML IVPB SCH (08:45)
--- NOTE | 2018-03-10 08:49 | PDOC.CTH ---
<Sally Aguilar - Last Filed: 03/10/18 08:46> Cardiology Progress Note - Subjective The pt seen and examined. No overnight events. No cardiac complaints. - Objective Vital Signs Temp Pulse Resp BP BP Pulse Ox 03/10/18 07:54 98.7 F 92 18 111/66 94 L 03/10/18 05:55 92 L 03/10/18 03:22 98.5 F 71 12 94/54 L 91 L 03/10/18 00:15 90/53 L 03/09/18 23:46 89/53 L Weight 204 lb 11.2 oz 03/09/18 03/10/18 03/11/18 06:59 06:59 06:59 Intake Total 1813 1210 Output Total 1505 860 Balance 308 350 - Physical Examination General/Neuro: alert & oriented x3 Neck: no JVD present Lungs: CTA Heart: other: (irregular) Abdomen: soft Extremities: other: (No edema;) - Telemetry Telemetry Rhythm: Afib 90-120s - Labs Result Diagrams: 03/09/18 04:24 03/09/18 04:24 Troponin/CKMB CK-MB (CK-2) 2.9 ng/mL (0-6.6) 03/05/18 22:39 Troponin I 0.440 ng/mL (< 0.028) H* 03/06/18 07:11 - Assessment/Plan 1. Post-Op Afib since 0540 on 03/10/18 - Start Amiodarone drip protocol. 2. CAD with s/p CABG x 6 on 03/08/18 with TOMLINSON to LAD mid and distal(jump), SVG -> Ramus-Diag. ( jump), SVG-> OM, SVG-> distal RCA. On BBlocker, RONALDO, ASA 325mg qd, and Lipitor 40mg qd. 3. HTN: stable with current meds; cont. to monitor 4. Dyslipidemia: on Statin MAR reviewed Review of Systems - Review of Systems Constitutional: reports: no symptoms reported EENTM: reports: no symptoms reported Respiratory: reports: no symptoms reported Cardiac (ROS): reports: no symptoms reported ABD/GI: reports: no symptoms reported : reports: no symptoms reported Musculoskeletal: reports: no symptoms reported <Daryl Colon - Last Filed: 03/10/18 19:52> Cardiology Progress Note - Objective Vital Signs Temp Pulse Pulse Pulse Resp BP BP 03/10/18 17:20 98.4 F 77 18 03/10/18 14:28 68 83 109/62 116/65 03/10/18 12:11 98.4 F 110 H 18 03/10/18 09:41 79 100 94/60 118/66 03/10/18 09:01 03/10/18 07:54 98.7 F 92 18 BP Pulse Ox Pulse Ox Pulse Ox 03/10/18 17:20 117/66 91 L 03/10/18 14:28 03/10/18 12:11 106/64 92 L 03/10/18 09:41 95 92 L 03/10/18 09:01 94 L 03/10/18 07:54 111/66 94 L Weight 204 lb 11.2 oz 03/09/18 03/10/18 03/11/18 06:59 06:59 06:59 Intake Total 1813 1210 590 Output Total 8186 428 4710 Balance 308 350 -1710 - Labs Result Diagrams: 03/09/18 04:24 03/09/18 04:24 Troponin/CKMB CK-MB (CK-2) 2.9 ng/mL (0-6.6) 03/05/18 22:39 Troponin I 0.440 ng/mL (< 0.028) H* 03/06/18 07:11 - Assessment/Plan Pt. seen and eval. by me. I agree with the a/P by the PROTOTYPE TECHNICIAN but he has now converted back to sinus rhythm after the amiodarone was started.H denies complaints. RRR,chest clear. Watch over the weekend.
[2018-03-10] MEDS: Amiodarone HCl 450 MG, Admixture Fee 1 EACH in Dextrose 5% in Water 250 ML IVPB SCH ×2 (09:07→14:43)
[2018-03-10] MEDS: Famotidine 20 MG TAB PO SCH ×2 (09:25→20:44)
[2018-03-10] MEDS: Gabapentin 300 MG CAP PO SCH ×3 (09:25→20:44)
[2018-03-10] MEDS: Furosemide 40 MG TAB PO SCH ×2 (09:25→14:01)
[2018-03-10] MEDS: Aspirin 325 mg Enteric Coated Tablet PO SCH (09:38)
--- NOTE | 2018-03-10 09:55 | PDOC.PN ---
- Subjective Encounter Start Date: 03/10/18 Encounter Start Time: 07:20 -: old records requested/rev pt has no complaints, but this morning he has afib - Objective Resuscitation Status: Resuscitation Status FULL:Full Resuscitation MAR Reviewed: Yes Vital Signs & Weight: Vital Signs (12 hours) Temp Pulse Resp BP BP Pulse Ox 03/10/18 07:54 98.7 F 92 18 111/66 94 L 03/10/18 05:55 92 L 03/10/18 03:22 98.5 F 71 12 94/54 L 91 L 03/10/18 00:15 90/53 L 03/09/18 23:46 89/53 L Weight Weight 204 lb 11.2 oz Most Recent Monitor Data Heart Rate from ECG 81 NIBP 109/73 NIBP BP-Mean 85 Respiration from ECG 28 SpO2 88 I&O: 03/09/18 03/10/18 03/11/18 06:59 06:59 06:59 Intake Total 1813 1210 Output Total 1505 860 Balance 308 350 Result Diagrams: 03/09/18 04:24 03/09/18 04:24 Additional Labs: Accuchecks 03/09/18 12:55 POC Glucose 123 H Radiology Reviewed by me: Yes EKG Reviewed by me: Yes (afib) Phys Exam - Physical Examination Constitutional: NAD HEENT: PERRLA, moist MMs, sclera anicteric Neck: no JVD, supple Respiratory: no wheezing, no rales, no rhonchi Cardiovascular: no significant murmur, irregular surgical site clean with dressing Gastrointestinal: soft, non-tender, no distention, positive bowel sounds Musculoskeletal: no edema, pulses present Neurological: non-focal, normal sensation, moves all 4 limbs Lymphatic: no nodes Psychiatric: normal affect, A&O x 3 Skin: no rash, normal turgor Dx/Plan (1) NSTEMI (non-ST elevated myocardial infarction) Code(s): I21.4 - NON-ST ELEVATION (NSTEMI) MYOCARDIAL INFARCTION Status: Acute (2) Multi-vessel coronary artery stenosis Code(s): I25.10 - ATHSCL HEART DISEASE OF [place] CORONARY ARTERY W/O ANG PCTRS Status: Acute (3) Status post aorto-coronary artery bypass graft Code(s): Z95.1 - PRESENCE OF AORTOCORONARY BYPASS GRAFT Status: Acute (4) Atrial fibrillation Code(s): I48.91 - UNSPECIFIED ATRIAL FIBRILLATION Status: Acute (5) Dyslipidemia Code(s): E78.5 - HYPERLIPIDEMIA, UNSPECIFIED Status: Chronic (6) HTN (hypertension) Code(s): I10 - ESSENTIAL (PRIMARY) HYPERTENSION Status: Chronic Qualifiers: Hypertension type: essential hypertension Qualified Code(s): I10 - Essential (primary) hypertension (7) Obesity (BMI 30.0-34.9) Code(s): E66.9 - OBESITY, UNSPECIFIED Status: Chronic - Plan cont current plan of care, plan discussed w/ family * cardiology on case, started on amiodaron drip for afib * continue post operative cardiac rehab * CT surgery following * medication reviewed as below * symptomatic treatment * discussed with family. Review of Systems - Review of Systems ENT: negative: Ear Pain, Ear Discharge, Nose Pain, Nose Discharge, Nose Congestion, Mouth Pain, Mouth Swelling, Throat Pain, Throat Swelling, Other Respiratory: negative: Cough, Dry, Shortness of Breath, Hemoptysis, SOB with Excertion, Pleuritic Pain, Sputum, Wheezing Cardiovascular: negative: chest pain, palpitations, orthopnea, paroxysmal nocturnal dyspnea, edema, light headedness, other Gastrointestinal: negative: Nausea, Vomiting, Abdominal Pain, Diarrhea, Constipation, Melena, Hematochezia, Other Genitourinary: negative: Dysuria, Frequency, Incontinence, Hematuria, Retention , Other Musculoskeletal: negative: Neck Pain, Shoulder Pain, Arm Pain, Back Pain, Hand Pain, Leg Pain, Foot Pain, Other Skin: negative: Rash, Lesions, Georges, Bruising, Other - Medications/Allergies Allergies/Adverse Reactions: Allergies Allergy/AdvReac Type Severity Reaction Status Date / Time No Known Allergies Allergy Verified 03/06/18 01:35 Medications: Current Medications Acetaminophen (Tylenol) 650 mg PO Q6H PRN PRN Reason: Headache/Fever or Mild Pain Hydrocodone Bitart/Acetaminophen ([place] 5/325) 2 tab PO Q4H PRN PRN Reason: Severe Pain (7-10) Hydrocodone Bitart/Acetaminophen ([place] 5/325) 1 tab PO Q4H PRN PRN Reason: Moderate Pain (4-6) Al Hydroxide/Mg Hydroxide (Maalox) 30 ml PO Q4H PRN PRN Reason: Indigestion Albuterol/Ipratropium (Duoneb) 3 ml NEB [id number] PRN PRN Reason: Respiratory Distress Artificial Tears (Tears Naturale) 1 drop EA EYE PRN PRN PRN Reason: Dry Eyes Aspirin (Ecotrin) 325 mg PO DAILY [facility] Last Admin: 03/10/18 09:38 Dose: 325 mg Atorvastatin Calcium (Lipitor) 40 mg PO HS [facility] Last Admin: 03/09/18 20:55 Dose: 40 mg Bisacodyl (Dulcolax) 10 mg PO Q12H PRN PRN Reason: Constipation Bisacodyl (Dulcolax) 10 mg [place] Q12H PRN PRN Reason: Constipation Carvedilol (Coreg) 3.125 mg PO BID-[facility] Last Admin: 03/09/18 17:11 Dose: 3.125 mg Diphenhydramine HCl (Benadryl) 25 mg PO Q6H PRN PRN Reason: Itching & Insomnia or [place] A Famotidine (Pepcid) 20 mg PO BID [facility] Last Admin: 03/10/18 09:25 Dose: 20 mg Fentanyl (Sublimaze) 25 mcg SLOW IVP Q2H PRN PRN Reason: Moderate breakthrough pain Fentanyl (Sublimaze) 50 mcg SLOW IVP Q2H PRN PRN Reason: Severe breakthrough pain Furosemide (Lasix) 40 mg PO 0900,1400 [facility] Last Admin: 03/10/18 09:25 Dose: 40 mg Gabapentin (Neurontin) 300 mg PO TID [facility] Last Admin: 03/10/18 09:25 Dose: 300 mg Guaifenesin/Dextromethorphan (Robitussin Dm) 15 ml PO Q4H PRN PRN Reason: Cough Hydralazine HCl (Apresoline) 10 mg SLOW IVP Q6H PRN PRN Reason: To Maintain SBP< 140mmHG Magnesium Sulfate 2 gm/ Device 50 mls @ 50 mls/hr IVPB QAM [facility] Stop: 03/10/18 09:59 Last Admin: 03/09/18 13:36 Dose: 50 mls Amiodarone HCl 450 mg/Miscellaneous Medication 1 each/ Dextrose/Water 259 mls @ 0 mls/hr IVPB INF [facility] Last Admin: 03/10/18 09:07 Dose: 259 mls Amiodarone HCl 150 mg/Miscellaneous Medication 1 each/ Dextrose/Water 103 mls @ 412 mls/hr IVPB ONE DAWN Stop: 03/10/18 10:00 Ketorolac Tromethamine (Toradol) 30 mg IVP Q6HR DAWN Stop: 03/12/18 18:01 Last Admin: 03/10/18 05:49 Dose: 30 mg Magnesium Hydroxide (Milk Of Magnesium) 30 ml PO Q12H PRN PRN Reason: Constipation Mineral Oil (Fleet Mineral Oil) 133 ml [place] DAILYPRN PRN PRN Reason: Constipation Nitroglycerin (Nitrostat) 0.4 mg SL Q5MIN PRN PRN Reason: Chest Pain Ondansetron HCl (Zofran) 4 mg IVP Q6H PRN PRN Reason: Nausea/Vomiting Sodium Chloride (Flush - Normal Saline) 10 ml IVF PRN PRN PRN Reason: Saline Flush Zolpidem Tartrate (Ambien) 5 mg PO HSPRN PRN PRN Reason: Insomnia
[2018-03-10] MEDS: Carvedilol 3.125 MG TAB PO SCH ×2 (11:32→17:35)
[2018-03-10] MEDS: Magnesium 2 GM/50 ML 2 GM in Premix Bag 1 BAG IVPB SCH (11:43)
--- NOTE | 2018-03-10 15:03 | PRG ---
DATE OF SERVICE: 03/10/2018 SERVICE: Pulmonary Medicine. INTERVAL HISTORY: The patient is doing fantastic from a respiratory standpoint. He denies any current chest pain, fevers, chills, shortness of breath. He continues to have a little bit of pain with coughing and deep breathing, but otherwise, there has been no specific interval change to his condition. He has been weaned down to room air. PHYSICAL EXAMINATION: VITAL SIGNS: Afebrile, pulse 92, blood pressure 111/66, respirations 18, saturation 94% on room air. GENERAL: The patient is awake and alert, in no apparent distress. LUNGS: Decent air entry. Minimal dependent crackles are present. There is no prolonged expiratory phase or wheezing present. HEART: Normal rate, regular. ABDOMEN: Soft, nontender, nondistended. Bowel sounds are positive. MUSCULOSKELETAL: No cyanosis or clubbing. There is trace 1+ pitting in the bilateral lower extremities. NEUROLOGIC: Grossly nonfocal. LABORATORY DATA: WBC 6.2, hemoglobin 10.5, platelets 111,000. Liver function studies are essentially unremarkable. His alkaline phosphatase is 24. Magnesium 2.2. ASSESSMENT: 1. Acute hypoxic and hypercapnic respiratory failure, resolved. 2. Coronary artery disease. 3. Coronary artery bypass graft x6 vessels, postop day #2. 4. Atrial fibrillation in the post-op period. 5. Neuropathy of the right wrist, digits 1, 2, 3 and half of 4, consistent with possible median nerve damage. 6. Obstructive sleep apnea, strongly suspected. DISCUSSION AND PLAN: The patient is doing absolutely wonderful from a respiratory standpoint. He has been titrated down to room air. At this point, he has no further requirements for inpatient Pulmonary or Critical Care opinion and I will sign off. Please call with additional questions or concerns moving forward. FRANSISCO
[2018-03-10] MEDS: Atorvastatin Calcium 40 MG TAB PO SCH (20:44)
[2018-03-11] MEDS: Ketorolac Tromethamine 30 MG/ML VIAL IVP SCH ×6 (00:01→17:03)
[2018-03-11] MEDS: Amiodarone HCl 450 MG, Admixture Fee 1 EACH in Dextrose 5% in Water 250 ML IVPB SCH (05:27)
--- NOTE | 2018-03-11 08:19 | EKG ---
Test Reason : S/P CABG Blood Pressure : / mmHG Vent. Rate : 061 BPM Atrial Rate : 061 BPM P-R Int : 158 ms QRS Dur : 110 ms QT Int : 526 ms P-R-T Axes : 075 045 -52 degrees QTc Int : 529 ms Normal sinus rhythm Prolonged QT Abnormal ECG When compared with ECG of 05-MAR-2018 22:38, (Unconfirmed) Sinus rhythm has replaced Junctional rhythm ST now depressed in Anterior leads T wave inversion now evident in Inferior leads T wave inversion now evident in Anterolateral leads QT has lengthened Confirmed by CÉSAR LARA ([id number]) on 03/11/2018 8:19:13 AM Referred By: KHADIJAH DAVIS Confirmed By:CÉSAR LARA
[2018-03-11] MEDS: Gabapentin 300 MG CAP PO SCH ×3 (08:47→21:19)
[2018-03-11] MEDS: Aspirin 325 mg Enteric Coated Tablet PO SCH (08:47)
[2018-03-11] MEDS: Famotidine 20 MG TAB PO SCH ×2 (08:47→21:19)
[2018-03-11] MEDS: Carvedilol 3.125 MG TAB PO SCH (08:47)
[2018-03-11] MEDS: Furosemide 40 MG TAB PO SCH ×2 (08:47→14:01)
--- NOTE | 2018-03-11 10:04 | PDOC.PN ---
- Subjective Encounter Start Date: 03/11/18 Encounter Start Time: 07:40 Patient seen and examined. No new complaints. No overnight events he is converted to nsr yesterday, he feels bloated, but he had good BM yesterday - Objective Resuscitation Status: Resuscitation Status FULL:Full Resuscitation MAR Reviewed: Yes Vital Signs & Weight: Vital Signs (12 hours) Temp Pulse Resp BP BP Pulse Ox 03/11/18 07:48 98 F 75 16 133/62 95 03/11/18 06:45 67 20 111/68 03/11/18 03:15 98.5 F 96 18 133/68 92 L 03/11/18 00:07 71 16 129/81 Weight Weight 216 lb 3.2 oz Most Recent Monitor Data Heart Rate from ECG 81 NIBP 109/73 NIBP BP-Mean 85 Respiration from ECG 28 SpO2 88 I&O: 03/10/18 03/11/18 03/12/18 06:59 06:59 06:59 Intake Total 1210 1742.4 Output Total 860 3550 Balance 350 -1807.6 Result Diagrams: 03/09/18 04:24 03/09/18 04:24 EKG Reviewed by me: Yes (nsr) Phys Exam - Physical Examination Constitutional: NAD HEENT: PERRLA, moist MMs, sclera anicteric Neck: no JVD, supple Respiratory: no wheezing, no rales, no rhonchi surgical site clean Cardiovascular: RRR, no significant murmur, no rub Gastrointestinal: soft, non-tender, no distention, positive bowel sounds Musculoskeletal: no edema, pulses present Neurological: non-focal, normal sensation, moves all 4 limbs Psychiatric: normal affect, A&O x 3 Skin: no rash, normal turgor Dx/Plan (1) NSTEMI (non-ST elevated myocardial infarction) Code(s): I21.4 - NON-ST ELEVATION (NSTEMI) MYOCARDIAL INFARCTION Status: Acute (2) Multi-vessel coronary artery stenosis Code(s): I25.10 - ATHSCL HEART DISEASE OF [place] CORONARY ARTERY W/O ANG PCTRS Status: Acute (3) Status post aorto-coronary artery bypass graft Code(s): Z95.1 - PRESENCE OF AORTOCORONARY BYPASS GRAFT Status: Acute (4) Dyslipidemia Code(s): E78.5 - HYPERLIPIDEMIA, UNSPECIFIED Status: Chronic (5) Atrial fibrillation Code(s): I48.91 - UNSPECIFIED ATRIAL FIBRILLATION Status: Acute (6) HTN (hypertension) Code(s): I10 - ESSENTIAL (PRIMARY) HYPERTENSION Status: Chronic Qualifiers: Hypertension type: essential hypertension Qualified Code(s): I10 - Essential (primary) hypertension (7) Obesity (BMI 30.0-34.9) Code(s): E66.9 - OBESITY, UNSPECIFIED Status: Chronic - Plan cont current plan of care, plan discussed w/ family * continue cardiac rehab * amiodaron drip as per cardiology * medication reviewed as below * symptomatic treatment * monitor on tele. Review of Systems - Review of Systems ENT: negative: Ear Pain, Ear Discharge, Nose Pain, Nose Discharge, Nose Congestion, Mouth Pain, Mouth Swelling, Throat Pain, Throat Swelling, Other Respiratory: negative: Cough, Dry, Shortness of Breath, Hemoptysis, SOB with Excertion, Pleuritic Pain, Sputum, Wheezing Cardiovascular: negative: chest pain, palpitations, orthopnea, paroxysmal nocturnal dyspnea, edema, light headedness, other Gastrointestinal: negative: Nausea, Vomiting, Abdominal Pain, Diarrhea, Constipation, Melena, Hematochezia, Other Genitourinary: negative: Dysuria, Frequency, Incontinence, Hematuria, Retention , Other Musculoskeletal: negative: Neck Pain, Shoulder Pain, Arm Pain, Back Pain, Hand Pain, Leg Pain, Foot Pain, Other Skin: negative: Rash, Lesions, Georges, Bruising, Other - Medications/Allergies Allergies/Adverse Reactions: Allergies Allergy/AdvReac Type Severity Reaction Status Date / Time No Known Allergies Allergy Verified 03/06/18 01:35 Medications: Current Medications Acetaminophen (Tylenol) 650 mg PO Q6H PRN PRN Reason: Headache/Fever or Mild Pain Hydrocodone Bitart/Acetaminophen ([place] 5/325) 2 tab PO Q4H PRN PRN Reason: Severe Pain (7-10) Hydrocodone Bitart/Acetaminophen ([place] 5/325) 1 tab PO Q4H PRN PRN Reason: Moderate Pain (4-6) Al Hydroxide/Mg Hydroxide (Maalox) 30 ml PO Q4H PRN PRN Reason: Indigestion Albuterol/Ipratropium (Duoneb) 3 ml NEB [id number] PRN PRN Reason: Respiratory Distress Artificial Tears (Tears Naturale) 1 drop EA EYE PRN PRN PRN Reason: Dry Eyes Aspirin (Ecotrin) 325 mg PO DAILY [facility] Last Admin: 03/11/18 08:47 Dose: 325 mg Atorvastatin Calcium (Lipitor) 40 mg PO HS [facility] Last Admin: 03/10/18 20:44 Dose: 40 mg Bisacodyl (Dulcolax) 10 mg PO Q12H PRN PRN Reason: Constipation Bisacodyl (Dulcolax) 10 mg [place] Q12H PRN PRN Reason: Constipation Carvedilol (Coreg) 3.125 mg PO BID-[facility] Last Admin: 03/11/18 08:47 Dose: 3.125 mg Diphenhydramine HCl (Benadryl) 25 mg PO Q6H PRN PRN Reason: Itching & Insomnia or [place] A Famotidine (Pepcid) 20 mg PO BID [facility] Last Admin: 03/11/18 08:47 Dose: 20 mg Fentanyl (Sublimaze) 25 mcg SLOW IVP Q2H PRN PRN Reason: Moderate breakthrough pain Fentanyl (Sublimaze) 50 mcg SLOW IVP Q2H PRN PRN Reason: Severe breakthrough pain Furosemide (Lasix) 40 mg PO 0900,1400 [facility] Last Admin: 03/11/18 08:47 Dose: 40 mg Gabapentin (Neurontin) 300 mg PO TID [facility] Last Admin: 03/11/18 08:47 Dose: 300 mg Guaifenesin/Dextromethorphan (Robitussin Dm) 15 ml PO Q4H PRN PRN Reason: Cough Hydralazine HCl (Apresoline) 10 mg SLOW IVP Q6H PRN PRN Reason: To Maintain SBP< 140mmHG Amiodarone HCl 450 mg/Miscellaneous Medication 1 each/ Dextrose/Water 259 mls @ 0 mls/hr IVPB INF [facility] Last Admin: 03/11/18 05:27 Dose: 259 mls Ketorolac Tromethamine (Toradol) 30 mg IVP Q6HR [facility] Stop: 03/12/18 18:01 Last Admin: 03/11/18 06:45 Dose: 30 mg Magnesium Hydroxide (Milk Of Magnesium) 30 ml PO Q12H PRN PRN Reason: Constipation Mineral Oil (Fleet Mineral Oil) 133 ml [place] DAILYPRN PRN PRN Reason: Constipation Nitroglycerin (Nitrostat) 0.4 mg SL Q5MIN PRN PRN Reason: Chest Pain Ondansetron HCl (Zofran) 4 mg IVP Q6H PRN PRN Reason: Nausea/Vomiting Sodium Chloride (Flush - Normal Saline) 10 ml IVF PRN PRN PRN Reason: Saline Flush Last Admin: 03/11/18 08:48 Dose: 10 ml Zolpidem Tartrate (Ambien) 5 mg PO HSPRN PRN PRN Reason: Insomnia
[2018-03-11] MEDS ORDERED: Amiodarone 200 MG TAB PO SCH (11:15)
[2018-03-11] MEDS: Bisacodyl 5 MG TAB PO PRN (11:36)
[2018-03-11] MEDS ORDERED: Simethicone Chewable 80 MG TAB PO SCH (12:15)
[2018-03-11] MEDS ORDERED: Polyethylene Glycol 3350 17 GM Packet PO SCH (12:15)
--- NOTE | 2018-03-11 13:32 | PDOC.CTH ---
<Sally Aguilar - Last Filed: 03/11/18 13:33> Cardiology Progress Note - Subjective The pt seen and examined. No overnight events. No cardiac complaints. He has been walking around nursing station without any cardiac complaints. - Objective Vital Signs Temp Pulse Resp BP BP Pulse Ox 03/11/18 11:23 98.4 F 64 16 104/64 95 03/11/18 08:00 95 03/11/18 07:48 98 F 75 16 133/62 95 03/11/18 06:45 67 20 111/68 03/11/18 03:15 98.5 F 96 18 133/68 92 L Weight 216 lb 3.2 oz 03/10/18 03/11/18 03/12/18 06:59 06:59 06:59 Intake Total 1210 1742.4 Output Total 860 3550 Balance 350 -1807.6 - Physical Examination General/Neuro: alert & oriented x3 Neck: no JVD present Lungs: CTA Heart: RRR Abdomen: soft Extremities: other: (No edema) - Telemetry Telemetry Rhythm: SR - Labs Result Diagrams: 03/09/18 04:24 03/09/18 04:24 Troponin/CKMB CK-MB (CK-2) 2.9 ng/mL (0-6.6) 03/05/18 22:39 Troponin I 0.440 ng/mL (< 0.028) H* 03/06/18 07:11 - Assessment/Plan 1. Post-Op Afib from 0540 to 1446 on 03/10/18 - converted to back to SR at 1446 on 03/10/18; Amiodarone drip was d/chacho and changed to 200mg PO BID from this PM. 2. CAD with s/p CABG x 6 on 03/08/18 with TOMLINSON to LAD mid and distal (jump), SVG -> Ramus-Diag. ( jump), SVG-> OM, SVG-> distal RCA - stable with BBlocker, RONALDO, ASA 325mg qd, and Lipitor 40mg qd. 3. HTN: stable with current meds; cont. to monitor 4. Dyslipidemia: on Statin MAR reviewed Review of Systems - Review of Systems Constitutional: reports: no symptoms reported EENTM: reports: no symptoms reported Respiratory: reports: no symptoms reported Cardiac (ROS): reports: no symptoms reported ABD/GI: reports: no symptoms reported : reports: no symptoms reported Musculoskeletal: reports: no symptoms reported <Daryl Colon - Last Filed: 03/11/18 23:50> Cardiology Progress Note - Objective Vital Signs Temp Pulse Resp BP BP Pulse Ox 03/11/18 19:44 98.7 F 69 20 115/63 93 L 03/11/18 17:04 119/62 03/11/18 17:01 99.2 F 66 16 119/62 95 Weight 216 lb 3.2 oz 03/10/18 03/11/18 03/12/18 06:59 06:59 06:59 Intake Total 1210 1742.4 1520 Output Total 860 3550 1150 Balance 350 -1807.6 370 - Labs Result Diagrams: 03/09/18 04:24 03/09/18 04:24 Troponin/CKMB CK-MB (CK-2) 2.9 ng/mL (0-6.6) 03/05/18 22:39 Troponin I 0.440 ng/mL (< 0.028) H* 03/06/18 07:11 - Assessment/Plan Pt. seen and evaluated by me. I agree with the A/P by the CULINARY INTERNSHIP. We have discussed the pt. and the plan.Chest clear RRR. He is maintaining NSR. Continue amiodarone for a month and then probably d/c.
[2018-03-11] MEDS: Carvedilol 6.25 MG TAB PO SCH (17:04)
[2018-03-11] MEDS: Simethicone Chewable 80 MG TAB PO SCH ×2 (17:04→21:19)
[2018-03-11] MEDS: Atorvastatin Calcium 40 MG TAB PO SCH (21:19)
[2018-03-11] MEDS: Amiodarone 200 MG TAB PO SCH (21:19)
[2018-03-12] MEDS: Ketorolac Tromethamine 30 MG/ML VIAL IVP SCH ×4 (00:14→17:25)
[2018-03-12] MEDS: Carvedilol 6.25 MG TAB PO SCH ×2 (09:35→16:04)
[2018-03-12] MEDS: Simethicone Chewable 80 MG TAB PO SCH ×4 (09:35→20:36)
[2018-03-12] MEDS: Amiodarone 200 MG TAB PO SCH ×2 (09:36→20:35)
[2018-03-12] MEDS: Famotidine 20 MG TAB PO SCH ×2 (09:36→20:35)
[2018-03-12] MEDS: Gabapentin 300 MG CAP PO SCH ×3 (09:36→20:36)
[2018-03-12] MEDS: Polyethylene Glycol 3350 17 GM Packet PO SCH (09:36)
[2018-03-12] MEDS: Furosemide 40 MG TAB PO SCH ×2 (09:36→13:22)
[2018-03-12] MEDS: Aspirin 325 mg Enteric Coated Tablet PO SCH (09:36)
--- NOTE | 2018-03-12 10:05 | PDOC.PN ---
- Subjective Encounter Start Date: 03/12/18 Encounter Start Time: 07:40 Patient seen and examined. No new complaints. No overnight events pt again converted to afib he had some bleeding from surgical site - Objective Resuscitation Status: Resuscitation Status FULL:Full Resuscitation MAR Reviewed: Yes Vital Signs & Weight: Vital Signs (12 hours) Temp Pulse Resp BP BP BP Pulse Ox 03/12/18 09:35 164/74 H 03/12/18 08:15 97.8 F 65 18 164/74 H 97 03/12/18 06:32 62 20 141/73 H 03/12/18 05:27 98 03/12/18 03:40 97.7 F 60 12 118/72 98 03/12/18 00:00 98.4 F 63 20 112/72 94 L Weight Weight 206 lb 9.6 oz Most Recent Monitor Data Heart Rate from ECG 81 NIBP 109/73 NIBP BP-Mean 85 Respiration from ECG 28 SpO2 88 I&O: 03/11/18 03/12/18 03/13/18 06:59 06:59 06:59 Intake Total 1742.4 1872 Output Total 3550 2650 Balance -1807.6 -778 Result Diagrams: 03/09/18 04:24 03/09/18 04:24 EKG Reviewed by me: Yes (afib) Phys Exam - Physical Examination Constitutional: NAD HEENT: PERRLA, moist MMs, sclera anicteric Neck: no JVD, supple Respiratory: no wheezing, no rales, no rhonchi surgical site with dressing Cardiovascular: no significant murmur, irregular Gastrointestinal: soft, non-tender, no distention, positive bowel sounds Musculoskeletal: no edema, pulses present Neurological: non-focal, normal sensation, moves all 4 limbs Lymphatic: no nodes Psychiatric: normal affect, A&O x 3 Skin: no rash, normal turgor Dx/Plan (1) NSTEMI (non-ST elevated myocardial infarction) Code(s): I21.4 - NON-ST ELEVATION (NSTEMI) MYOCARDIAL INFARCTION Status: Acute (2) Multi-vessel coronary artery stenosis Code(s): I25.10 - ATHSCL HEART DISEASE OF [place] CORONARY ARTERY W/O ANG PCTRS Status: Acute (3) Status post aorto-coronary artery bypass graft Code(s): Z95.1 - PRESENCE OF AORTOCORONARY BYPASS GRAFT Status: Acute (4) Dyslipidemia Code(s): E78.5 - HYPERLIPIDEMIA, UNSPECIFIED Status: Chronic (5) Atrial fibrillation Code(s): I48.91 - UNSPECIFIED ATRIAL FIBRILLATION Status: Acute (6) HTN (hypertension) Code(s): I10 - ESSENTIAL (PRIMARY) HYPERTENSION Status: Chronic Qualifiers: Hypertension type: essential hypertension Qualified Code(s): I10 - Essential (primary) hypertension (7) Obesity (BMI 30.0-34.9) Code(s): E66.9 - OBESITY, UNSPECIFIED Status: Chronic - Plan cont current plan of care * continue surgical site care * on po amiodaron * medication reviewed as below * symptomatic treatment * will monitor. Review of Systems - Review of Systems ENT: negative: Ear Pain, Ear Discharge, Nose Pain, Nose Discharge, Nose Congestion, Mouth Pain, Mouth Swelling, Throat Pain, Throat Swelling, Other Respiratory: negative: Cough, Dry, Shortness of Breath, Hemoptysis, SOB with Excertion, Pleuritic Pain, Sputum, Wheezing Cardiovascular: negative: chest pain, palpitations, orthopnea, paroxysmal nocturnal dyspnea, edema, light headedness, other Gastrointestinal: negative: Nausea, Vomiting, Abdominal Pain, Diarrhea, Constipation, Melena, Hematochezia, Other Genitourinary: negative: Dysuria, Frequency, Incontinence, Hematuria, Retention , Other Musculoskeletal: negative: Neck Pain, Shoulder Pain, Arm Pain, Back Pain, Hand Pain, Leg Pain, Foot Pain, Other Skin: negative: Rash, Lesions, Georges, Bruising, Other - Medications/Allergies Allergies/Adverse Reactions: Allergies Allergy/AdvReac Type Severity Reaction Status Date / Time No Known Allergies Allergy Verified 03/06/18 01:35 Medications: Current Medications Acetaminophen (Tylenol) 650 mg PO Q6H PRN PRN Reason: Headache/Fever or Mild Pain Hydrocodone Bitart/Acetaminophen ([place] 5/325) 2 tab PO Q4H PRN PRN Reason: Severe Pain (7-10) Hydrocodone Bitart/Acetaminophen ([place] 5/325) 1 tab PO Q4H PRN PRN Reason: Moderate Pain (4-6) Al Hydroxide/Mg Hydroxide (Maalox) 30 ml PO Q4H PRN PRN Reason: Indigestion Albuterol/Ipratropium (Duoneb) 3 ml NEB [id number] PRN PRN Reason: Respiratory Distress Amiodarone HCl (Cordarone) 200 mg PO BID [facility] Last Admin: 03/12/18 09:36 Dose: 200 mg Artificial Tears (Tears Naturale) 1 drop EA EYE PRN PRN PRN Reason: Dry Eyes Aspirin (Ecotrin) 325 mg PO DAILY [facility] Last Admin: 03/12/18 09:36 Dose: 325 mg Atorvastatin Calcium (Lipitor) 40 mg PO HS [facility] Last Admin: 03/11/18 21:19 Dose: 40 mg Bisacodyl (Dulcolax) 10 mg PO Q12H PRN PRN Reason: Constipation Last Admin: 03/11/18 11:36 Dose: 10 mg Bisacodyl (Dulcolax) 10 mg [place] Q12H PRN PRN Reason: Constipation Carvedilol (Coreg) 6.25 mg PO BID-[facility] Last Admin: 03/12/18 09:35 Dose: 6.25 mg Diphenhydramine HCl (Benadryl) 25 mg PO Q6H PRN PRN Reason: Itching & Insomnia or [place] A Famotidine (Pepcid) 20 mg PO BID [facility] Last Admin: 03/12/18 09:36 Dose: 20 mg Fentanyl (Sublimaze) 25 mcg SLOW IVP Q2H PRN PRN Reason: Moderate breakthrough pain Fentanyl (Sublimaze) 50 mcg SLOW IVP Q2H PRN PRN Reason: Severe breakthrough pain Furosemide (Lasix) 40 mg PO 0900,1400 [facility] Last Admin: 03/12/18 09:36 Dose: 40 mg Gabapentin (Neurontin) 300 mg PO TID [facility] Last Admin: 03/12/18 09:36 Dose: 300 mg Guaifenesin/Dextromethorphan (Robitussin Dm) 15 ml PO Q4H PRN PRN Reason: Cough Hydralazine HCl (Apresoline) 10 mg SLOW IVP Q6H PRN PRN Reason: To Maintain SBP< 140mmHG Ketorolac Tromethamine (Toradol) 30 mg IVP Q6HR [facility] Stop: 03/12/18 18:01 Last Admin: 03/12/18 06:34 Dose: 30 mg Magnesium Hydroxide (Milk Of Magnesium) 30 ml PO Q12H PRN PRN Reason: Constipation Mineral Oil (Fleet Mineral Oil) 133 ml [place] DAILYPRN PRN PRN Reason: Constipation Nitroglycerin (Nitrostat) 0.4 mg SL Q5MIN PRN PRN Reason: Chest Pain Ondansetron HCl (Zofran) 4 mg IVP Q6H PRN PRN Reason: Nausea/Vomiting Polyethylene Glycol (Miralax) 17 gm PO DAILY [facility] Last Admin: 03/12/18 09:36 Dose: Not Given Simethicone (Mylicon Chewable) 80 mg PO ACHS [facility] Last Admin: 03/12/18 09:35 Dose: 80 mg Sodium Chloride (Flush - Normal Saline) 10 ml IVF PRN PRN PRN Reason: Saline Flush Last Admin: 03/12/18 09:36 Dose: 10 ml Zolpidem Tartrate (Ambien) 5 mg PO HSPRN PRN PRN Reason: Insomnia
[2018-03-12] MEDS: HYDROcodone/Acetaminophen 5/325 mg Tablet PO PRN (10:20)
[2018-03-12] MEDS ORDERED: Metolazone 5 MG TAB PO SCH (13:15)
--- NOTE | 2018-03-12 13:54 | PDOC.CTH ---
<Sally Aguilar - Last Filed: 03/12/18 14:06> Cardiology Progress Note - Subjective The pt seen and examined. No overnight events. No cardiac complaints. He has received several pain meds today for discomfort and sharp pain to RU chest. S/ p suture to MSI. - Objective Vital Signs Temp Pulse Pulse Pulse Resp BP BP 03/12/18 11:57 97.9 F 65 18 03/12/18 09:35 164/74 H 03/12/18 08:52 114 H 66 146/66 H 03/12/18 08:15 97.8 F 65 18 03/12/18 06:32 62 20 03/12/18 05:27 03/12/18 03:40 97.7 F 60 12 BP BP BP Pulse Ox Pulse Ox Pulse Ox 03/12/18 11:57 94/65 94 L 03/12/18 09:35 03/12/18 08:52 128/62 96 94 L 03/12/18 08:15 164/74 H 97 03/12/18 06:32 141/73 H 03/12/18 05:27 98 03/12/18 03:40 118/72 98 Weight 206 lb 9.6 oz 03/11/18 03/12/18 03/13/18 06:59 06:59 06:59 Intake Total 1742.4 1872 Output Total 3550 2650 Balance -1807.6 -778 - Physical Examination General/Neuro: alert & oriented x3 Neck: no JVD present Lungs: CTA Heart: RRR Abdomen: soft Extremities: other: (No edema) - Telemetry Telemetry Rhythm: SR - Labs Result Diagrams: 03/09/18 04:24 03/09/18 04:24 Troponin/CKMB CK-MB (CK-2) 2.9 ng/mL (0-6.6) 03/05/18 22:39 Troponin I 0.440 ng/mL (< 0.028) H* 03/06/18 07:11 - Assessment/Plan 1. Post-Op Afib from 0540 to 1446 on 03/10/18 - converted to back to SR at 1446 on 03/10/18, converted to Aflutter at 0800, and converted back to SR around 1154 today. On Amiodarone to 200mg PO BID. 2. CAD with s/p CABG x 6 on 03/08/18 with TOMLINSON to LAD mid and distal (jump), SVG -> Ramus-Diag. ( jump), SVG-> OM, SVG-> distal RCA - stable with BBlocker, RONALDO, ASA 325mg qd, and Lipitor 40mg qd. 3. HTN: stable with current meds; cont. to monitor 4. Dyslipidemia: on Statin MAR reviewed *Continue amiodarone for a month and then probably d/c. Review of Systems - Review of Systems Constitutional: reports: see HPI EENTM: reports: no symptoms reported Respiratory: reports: no symptoms reported Cardiac (ROS): reports: no symptoms reported ABD/GI: reports: no symptoms reported : reports: no symptoms reported Musculoskeletal: reports: no symptoms reported <Daryl Colon - Last Filed: 03/12/18 22:22> Cardiology Progress Note - Objective Vital Signs Temp Pulse Resp BP BP Pulse Ox 03/12/18 16:04 112/63 03/12/18 16:02 97.5 F L 81 18 112/63 95 03/12/18 11:57 97.9 F 65 18 94/65 94 L Weight 206 lb 9.6 oz 03/11/18 03/12/18 03/13/18 06:59 06:59 06:59 Intake Total 1742.4 1872 1280 Output Total 3550 2650 1875 Balance -1807.6 -778 -595 - Labs Result Diagrams: 03/09/18 04:24 03/09/18 04:24 Troponin/CKMB CK-MB (CK-2) 2.9 ng/mL (0-6.6) 03/05/18 22:39 Troponin I 0.440 ng/mL (< 0.028) H* 03/06/18 07:11 - Assessment/Plan Pt. seen and evaluated by me. I agree with the A/P by the STAFF TOXICOLOGIST. We have discussed the pt. and the plan.Chest clear .IRRR. Some drainage from the sternal incision earlier today. Now seems to have stopped.
[2018-03-12] MEDS ORDERED: Amiodarone 200 MG TAB PO SCH (15:30)
[2018-03-12] MEDS: Atorvastatin Calcium 40 MG TAB PO SCH (20:35)
[2018-03-13 05:16] LABS: Anion Gap 9 mmol/L (10-20); BUN (Urea Nitrogen) 29 mg/dL (8.4-25.7); Calc. Creatinine Clearance 73 mL/min (70-130); Calcium 8.5 mg/dL (7.8-10.44); Carbon Dioxide 31 mmol/L (23-31); Chloride 102 mmol/L (98-107); Estimated GFR-MDRD 55; Glucose 107 mg/dL (80-115); Potassium 4.3 mmol/L (3.5-5.1); Sodium 138 mmol/L (136-145)
[2018-03-13 05:28] LABS: #Eosinphils 0.4 thou/uL (0.0-0.7); #Lymphocytes 1.2 thou/uL (1.20-3.40); #Monocytes 0.8 thou/uL (0.11-0.59); #Neutrophils 3.8 thou/uL (1.40-6.50); %Basophils 0.7 % (0.0-1.0); %Eosinophils 5.7 % (0.0-10.0); %Monocytes 12.9 % (0.0-10.0); %Neutrophils 61.6 % (42.0-75.0); Hemoglobin 10.5 g/dL (14.0-18.0); Mean Corpuscular HGB CONC 33.4 g/dL (32.0-36.0); Mean Corpuscular Hemoglobin 31.2 pg (27.0-31.0); Mean Corpuscular Volume 93.5 fL (78.0-98.0); Mean Platelet Volume 6.9 fL (7.4-10.4); Platelet Count 200 thou/uL (130-400); RBC Distribution Width 11.2 % (11.5-14.5); Red Blood Cell (RBC) Count 3.36 mill/uL (4.70-6.10); White Blood Cell (WBC) Count 6.2 thou/uL (4.8-10.8)
[2018-03-13] MEDS ORDERED: Metolazone 5 MG TAB PO SCH (07:30)
--- NOTE | 2018-03-13 08:33 | STRESS ---
Acquisition Time: 2018-03-06 10:19:31 Total Exercise Time: 00:02:06 Test Indications: CHEST PAIN Medications: Protocol: ARETHA Max HR: 090 BPM 58% of Pred: 153 BPM Max BP: 164/070 mmHG Max Work Load: 4.6 METS RESTING ECG: SINUS BRADYCARDIA AT 54 BPM WITH INTRAVENTRICULAR CONDUCTION DELAY AND NON-SPECIFIC T-WAVE CHANGES SYMPTOMS: NONE NORMAL BP RESPONSE ECTOPY: NONE ECG STRESS: NO SIGNIFICANT CHANGES INTERPRETATION: INDETERMINATE ECG/AWAIT NUCLEAR IMAGES FOR DEFINITIVE DIANGOSIS COMMENTS: UNABLE TO TOLERATE TREADMILL/CHANGE TO LEXISCAN STRESS Confirmed by ERA MACHADO ([id number]) on 03/13/2018 8:32:25 AM Referred By: MD Jillian RITCHIE Confirmed By:ERA MACHADO
--- NOTE | 2018-03-13 08:48 | PDOC.PN ---
- Subjective Encounter Start Date: 03/13/18 Encounter Start Time: 07:50 Patient seen and examined. No new complaints. No overnight events - Objective Resuscitation Status: Resuscitation Status FULL:Full Resuscitation MAR Reviewed: Yes Vital Signs & Weight: Vital Signs (12 hours) Temp Pulse Resp BP BP Pulse Ox 03/13/18 07:46 97.9 F 96 14 129/86 93 L 03/13/18 03:28 98.4 F 61 20 140/75 96 Weight Weight 208 lb Most Recent Monitor Data Heart Rate from ECG 81 NIBP 109/73 NIBP BP-Mean 85 Respiration from ECG 28 SpO2 88 I&O: 03/12/18 03/13/18 03/14/18 06:59 06:59 06:59 Intake Total 1872 1280 Output Total 2650 1875 Balance -778 -595 Result Diagrams: 03/13/18 04:24 03/13/18 04:24 Radiology Reviewed by me: Yes (chest xray reviewed) EKG Reviewed by me: Yes (afib) Phys Exam - Physical Examination Constitutional: NAD HEENT: PERRLA, moist MMs, sclera anicteric Neck: no JVD, supple Respiratory: no wheezing, no rales, no rhonchi surgical site with pressure bandage Cardiovascular: no significant murmur, irregular Gastrointestinal: soft, non-tender, no distention, positive bowel sounds Musculoskeletal: no edema, pulses present Neurological: non-focal, normal sensation, moves all 4 limbs Psychiatric: normal affect, A&O x 3 Skin: no rash, normal turgor Dx/Plan (1) NSTEMI (non-ST elevated myocardial infarction) Code(s): I21.4 - NON-ST ELEVATION (NSTEMI) MYOCARDIAL INFARCTION Status: Acute (2) Multi-vessel coronary artery stenosis Code(s): I25.10 - ATHSCL HEART DISEASE OF [place] CORONARY ARTERY W/O ANG PCTRS Status: Acute (3) Status post aorto-coronary artery bypass graft Code(s): Z95.1 - PRESENCE OF AORTOCORONARY BYPASS GRAFT Status: Acute (4) Dyslipidemia Code(s): E78.5 - HYPERLIPIDEMIA, UNSPECIFIED Status: Chronic (5) Atrial fibrillation Code(s): I48.91 - UNSPECIFIED ATRIAL FIBRILLATION Status: Acute (6) HTN (hypertension) Code(s): I10 - ESSENTIAL (PRIMARY) HYPERTENSION Status: Chronic Qualifiers: Hypertension type: essential hypertension Qualified Code(s): I10 - Essential (primary) hypertension (7) Obesity (BMI 30.0-34.9) Code(s): E66.9 - OBESITY, UNSPECIFIED Status: Chronic - Plan cont current plan of care, plan discussed w/ family * check free T3 and free T4 for low TSH * medication reviewed as below * symptomatic treatment * surgical site care as per surgeon * continue amiodarone for afib, rate controlled. Review of Systems - Review of Systems ENT: negative: Ear Pain, Ear Discharge, Nose Pain, Nose Discharge, Nose Congestion, Mouth Pain, Mouth Swelling, Throat Pain, Throat Swelling, Other Respiratory: negative: Cough, Dry, Shortness of Breath, Hemoptysis, SOB with Excertion, Pleuritic Pain, Sputum, Wheezing Cardiovascular: negative: chest pain, palpitations, orthopnea, paroxysmal nocturnal dyspnea, edema, light headedness, other Gastrointestinal: negative: Nausea, Vomiting, Abdominal Pain, Diarrhea, Constipation, Melena, Hematochezia, Other Genitourinary: negative: Dysuria, Frequency, Incontinence, Hematuria, Retention , Other Musculoskeletal: negative: Neck Pain, Shoulder Pain, Arm Pain, Back Pain, Hand Pain, Leg Pain, Foot Pain, Other Skin: negative: Rash, Lesions, Georges, Bruising, Other - Medications/Allergies Allergies/Adverse Reactions: Allergies Allergy/AdvReac Type Severity Reaction Status Date / Time No Known Allergies Allergy Verified 03/06/18 01:35 Medications: Current Medications Acetaminophen (Tylenol) 650 mg PO Q6H PRN PRN Reason: Headache/Fever or Mild Pain Hydrocodone Bitart/Acetaminophen ([place] 5/325) 2 tab PO Q4H PRN PRN Reason: Severe Pain (7-10) Last Admin: 03/12/18 10:20 Dose: 2 tab Hydrocodone Bitart/Acetaminophen ([place] 5/325) 1 tab PO Q4H PRN PRN Reason: Moderate Pain (4-6) Al Hydroxide/Mg Hydroxide (Maalox) 30 ml PO Q4H PRN PRN Reason: Indigestion Albuterol/Ipratropium (Duoneb) 3 ml NEB [id number] PRN PRN Reason: Respiratory Distress Amiodarone HCl (Cordarone) 400 mg PO BID [facility] Last Admin: 03/12/18 20:35 Dose: 400 mg Artificial Tears (Tears Naturale) 1 drop EA EYE PRN PRN PRN Reason: Dry Eyes Aspirin (Ecotrin) 325 mg PO DAILY [facility] Last Admin: 03/12/18 09:36 Dose: 325 mg Atorvastatin Calcium (Lipitor) 40 mg PO HS [facility] Last Admin: 03/12/18 20:35 Dose: 40 mg Bisacodyl (Dulcolax) 10 mg PO Q12H PRN PRN Reason: Constipation Last Admin: 03/11/18 11:36 Dose: 10 mg Bisacodyl (Dulcolax) 10 mg [place] Q12H PRN PRN Reason: Constipation Carvedilol (Coreg) 6.25 mg PO BID-[facility] Last Admin: 03/12/18 16:04 Dose: 6.25 mg Diphenhydramine HCl (Benadryl) 25 mg PO Q6H PRN PRN Reason: Itching & Insomnia or [place] A Famotidine (Pepcid) 20 mg PO BID [facility] Last Admin: 03/12/18 20:35 Dose: 20 mg Fentanyl (Sublimaze) 25 mcg SLOW IVP Q2H PRN PRN Reason: Moderate breakthrough pain Fentanyl (Sublimaze) 50 mcg SLOW IVP Q2H PRN PRN Reason: Severe breakthrough pain Furosemide (Lasix) 40 mg PO 0900,1400 [facility] Last Admin: 03/12/18 13:22 Dose: 40 mg Gabapentin (Neurontin) 300 mg PO TID [facility] Last Admin: 03/12/18 20:36 Dose: 300 mg Guaifenesin/Dextromethorphan (Robitussin Dm) 15 ml PO Q4H PRN PRN Reason: Cough Hydralazine HCl (Apresoline) 10 mg SLOW IVP Q6H PRN PRN Reason: To Maintain SBP< 140mmHG Magnesium Hydroxide (Milk Of Magnesium) 30 ml PO Q12H PRN PRN Reason: Constipation Metolazone (Zaroxolyn) 5 mg PO NOW [facility] Stop: 03/13/18 09:30 Mineral Oil (Fleet Mineral Oil) 133 ml [place] DAILYPRN PRN PRN Reason: Constipation Nitroglycerin (Nitrostat) 0.4 mg SL Q5MIN PRN PRN Reason: Chest Pain Ondansetron HCl (Zofran) 4 mg IVP Q6H PRN PRN Reason: Nausea/Vomiting Polyethylene Glycol (Miralax) 17 gm PO DAILY [facility] Last Admin: 03/12/18 09:36 Dose: Not Given Simethicone (Mylicon Chewable) 80 mg PO ACHS [facility] Last Admin: 03/12/18 20:36 Dose: 80 mg Sodium Chloride (Flush - Normal Saline) 10 ml IVF PRN PRN PRN Reason: Saline Flush Last Admin: 03/12/18 09:36 Dose: 10 ml Zolpidem Tartrate (Ambien) 5 mg PO HSPRN PRN PRN Reason: Insomnia
[2018-03-13] MEDS: Simethicone Chewable 80 MG TAB PO SCH ×4 (09:09→21:11)
[2018-03-13] MEDS: Gabapentin 300 MG CAP PO SCH ×3 (09:10→21:11)
[2018-03-13] MEDS: HYDROcodone/Acetaminophen 5/325 mg Tablet PO PRN ×2 (09:10→16:33)
[2018-03-13] MEDS: Famotidine 20 MG TAB PO SCH ×2 (09:10→21:11)
[2018-03-13] MEDS: Polyethylene Glycol 3350 17 GM Packet PO SCH (09:10)
[2018-03-13] MEDS: Furosemide 40 MG TAB PO SCH ×2 (09:10→14:28)
[2018-03-13] MEDS: Carvedilol 6.25 MG TAB PO SCH ×2 (09:10→18:07)
[2018-03-13] MEDS: Aspirin 325 mg Enteric Coated Tablet PO SCH (09:11)
[2018-03-13] MEDS: Amiodarone 200 MG TAB PO SCH ×2 (09:11→21:11)
--- NOTE | 2018-03-13 09:12 | PDOC.CTH ---
<Sally Aguilar - Last Filed: 03/13/18 09:12> Cardiology Progress Note - Subjective The pt seen and examined. No overnight events. No cardiac complaints. HR went up to 140-150s with Aflutter while he walked the floor. Asymptomatic. - Objective Vital Signs Temp Pulse Resp BP BP Pulse Ox 03/13/18 07:46 97.9 F 96 14 129/86 93 L 03/13/18 03:28 98.4 F 61 20 140/75 96 Weight 208 lb 03/12/18 03/13/18 03/14/18 06:59 06:59 06:59 Intake Total 1872 1280 Output Total 2650 1875 Balance -838 595 - Physical Examination General/Neuro: alert & oriented x3 Neck: no JVD present Lungs: CTA Heart: RRR, other: (Irregular) Abdomen: soft Extremities: other: (No edema) - Telemetry Telemetry Rhythm: SR and Aflutter 60-150s - Labs Result Diagrams: 03/13/18 04:24 03/13/18 04:24 Troponin/CKMB CK-MB (CK-2) 2.9 ng/mL (0-6.6) 03/05/18 22:39 Troponin I 0.440 ng/mL (< 0.028) H* 03/06/18 07:11 - Assessment/Plan 1. Post-Op Afib from 0540 to 1446 on 03/10/18 and intermittent Aflutter with RVR - Intermittent SR and Aflutter with RVR HR up to 140-150s with movement. Resting HR has been 90s with Afluter and low 60s with SR. On Amiodarone to 400mg PO BID. EP consult. 2. CAD with s/p CABG x 6 on 03/08/18 with TOMLINSON to LAD mid and distal (jump), SVG -> Ramus-Diag. ( jump), SVG-> OM, SVG-> distal RCA - stable with Coreg 6.25mg BID, RONALDO, ASA 325mg qd, and Lipitor 40mg qd. 3. HTN: stable with current meds; cont. to monitor 4. Dyslipidemia: on Statin MAR reviewed * EP consult for Aflutter with RVR * T3 and T4 checked today for low TSH by PCP. Review of Systems - Review of Systems Constitutional: reports: no symptoms reported EENTM: reports: no symptoms reported Respiratory: reports: no symptoms reported Cardiac (ROS): reports: no symptoms reported ABD/GI: reports: no symptoms reported : reports: no symptoms reported Musculoskeletal: reports: no symptoms reported <Daryl Colon - Last Filed: 03/13/18 17:20> Cardiology Progress Note - Objective Vital Signs Temp Pulse Resp BP BP BP Pulse Ox 03/13/18 15:15 97.8 F 82 16 164/82 H 95 03/13/18 11:34 129 H 16 125/81 96 03/13/18 09:10 129/86 03/13/18 07:46 97.9 F 96 14 129/86 93 L Weight 208 lb 03/12/18 03/13/18 03/14/18 06:59 06:59 06:59 Intake Total 1872 1280 Output Total 2650 1875 [facility] -778 -595 - Labs Result Diagrams: 03/13/18 04:24 03/13/18 04:24 Troponin/CKMB CK-MB (CK-2) 2.9 ng/mL (0-6.6) 03/05/18 22:39 Troponin I 0.440 ng/mL (< 0.028) H* 03/06/18 07:11 - Assessment/Plan Pt. seen and eval. by me . I agree with the A/P b the ACCESS DATABASE DEVELOPER. EP has seen the pt., continue amiodarone.
--- NOTE | 2018-03-13 09:49 | RAD ---
CHEST 1 VIEW: Date: 03/13/18 COMPARISON: 03/09/18. HISTORY: Status post open heart surgery. FINDINGS: Stable right-sided central venous catheter. Mediastinal drainage catheters have been removed. Sternot diego wires are noted. Stable cardiac silhouette and stable aeration of the lung parenchyma. No pneumot horax. IMPRESSION: Findings compatible with recent open heart surgery. POS: [facility]
--- NOTE | 2018-03-13 11:40 | PQF ---
CLINICAL DOCUMENTATION IMPROVEMENT CLARIFICATION FORM: ICD-10 Updated PLEASE DO AN ADDENDUM TO THE PROGRESS NOTE WITH ANY DOCUMENTATION UPDATES OR ADDITIONS AND CARRY THROUGH TO DC SUMMARY. THANK YOU. DATE: 03/13/18; 03/14/18; 03/15/18 ATTN: Sally Aguilar NP; Dr. Lundberg Please exercise your independent, professional judgment in responding to the clarification form. Clinical indicators are provided on the bottom of this form for your review Please check appropriate box(s): [ X ] Post-Operative Complication - Atrial Fibrillation/ Atrial flutter [ ] Persistent Atrial Fibrillation [ ] Atrial fib/Atrial flutter [ ] Atrial flutter [ ] Other Diagnosis [ ] Unable to Determine In addition, please specify: Present on Admission (POA): [ ] Yes [ X ] No [ ] Unable to determine For continuity of documentation, please document condition throughout progress notes and discharge summary. Thank You. CLINICAL INDICATORS - SIGNS / SYMPTOMS / LABS EP PN 03/14: ATRIAL FIBRILLATION AND TYPICAL FLUTTER, POSTOPERATIVELY. CARDIOLOGY PN 03/13: POST-OP AFIB FROM 0540 TO 1446 ON 03/10/18 & INTERMITTENT AFLUTTER with RVR - INTERMITTENT SR & AFLUTTER with RVR HR UP TO 140-150s with MOVEMENT. RESTING HR HAS BEEN 90s with AFLUTTER & LOW 60s with SR RISKS: CARDIOLOGY PN 03/13: CAD WITH S/P CABG X6 ON 03/08/18. HTN TREATMENT: EP PN 03/14: PLAN FOR SAMUEL TO RULE OUT SUMMER THROMBUS THEN PROCEED WITH CAVOTRICUSPID ISTHMUS ABLATION. CARDIOLOGY PN 03/13: ON AMIODARONE TO 400MG PO BID. EP CONSULT Thank you, Gabrielle (This form is maintained as a part of the permanent medical record) 2014 [employer]. All Rights Reserved Gabrielle Addison RN, BSN [email or web address] Office: [phone] [facility]
[2018-03-13 12:01] LABS: Free T4 (Free Thyroxine) 1.04 ng/dL (0.70-1.48)
--- NOTE | 2018-03-13 19:51 | CON ---
DATE OF CONSULTATION: 03/13/2018 ELECTROPHYSIOLOGY CONSULTATION REPORT I am seeing Mr. Reddy at our [facility] as an electrophysiology rewards consultant for the followin g problems: 1. Postoperative atrial flutter/fibrillation. 2. Coronary artery disease. A. Abnormal stress test. B. Left heart catheterization on 03/07/2018 reveals LVEF 60%-65%, LAD 90%, circumflex 90%, right cor onary artery 100%. C. Status post coronary artery bypass grafting surgery on 03/08/2018. 4. History of elevated blood pressure. ALLERGIES: None noted. MEDICATIONS AT HOME: None. SUBJECTIVE: Mr. Reddy is here after being admitted after abnormal stress test for chest pain. He w as found to have 3-vessel disease on subsequent heart catheterization, but still preserved LV systoli c function. Underwent a bypass surgery as noted above. Postoperatively, his recovery was marred by development of atrial fibrillation/flutter. Eventually, developed atrial flutter despite continued a miodarone use. Still has intermittent rapid ventricular rates currently. Atrial flutter morphology appears to be typical. Currently, he is feeling well, seems to be recovering well from surgery. Minor chest pains and incis ional serosanguineous discharge they were complaining of today. No obvious signs of infection. No f ever, chills, or cough. No stroke-like symptoms. No neurological deficits. The rest of 12-point sy stem is otherwise unremarkable. OBJECTIVE: VITAL SIGNS: Blood pressure is 125/81, heart rate 96, respirations 14, temperature 97.9 degrees Fahr enheit. GENERAL: Alert and oriented man in no apparent distress. NECK: Supple. Jugular veins are not distended. CHEST: Coarse without crackles. Midsternal scar is appreciated. CARDIOVASCULAR: Heart sounds are regular, but tachycardic. S1, S2 normal. No gallop is appreciated . PMI is nonpalpable. ABDOMEN: Benign. Bowel sounds positive. EXTREMITIES: Lower extremities without edema, clubbing, or cyanosis. DATABASE: The EKGs were reviewed. Initial EKG reveals sinus rhythm at a rate of 69 beats per minute , no sign of ST-T changes. Subsequent EKG does reveal continued sinus rhythm, but postoperatively fr equent PACs are seen. Eventually, the patient develops atrial fibrillation with heart rates 40-120. Subsequently, the first AFib was noted on 03/10/2018. Subsequently, the rhythm converted back to si nus rhythm, but also intermittent recurrence of atrial flutter is seen with rapid ventricular rates r equiring diltiazem administration. The atrial flutter appears to be typical isthmus dependent in mor phology. LABORATORY DATA: White count 6.2, hemoglobin 10.5, platelet count is 200. INR is 1.2. Sodium 138, potassium 4.3, BUN is 29, creatinine 1.31. ASSESSMENT AND PLAN: Mr. Reddy is a pleasant 67-year-old man with 3-vessel coronary disease, preser davi LV function status post recent bypass surgery. The patient developed atrial fibrillation postope ratively. Attempt was made to suppress it with amiodarone, but now he organized into atrial flutter. Atrial flutter is somewhat difficult to rate control currently. I discussed the mechanism of atrial fibrillation/flutter with him as well. He understands the differ ences between the conditions. Also, the treatment options including continued amiodarone therapy aubrey inez cavotricuspid isthmus ablation procedure were all detailed. Also detailed potential need for int ermediate anticoagulation as well. At this point, I would continue amiodarone therapy. If that is not successful to suppress the atrial flutter, he may be a candidate for a cavotricuspid isthmus ablation. We will follow with you. Thank you for allowing me to participate in the care of this patient.
[2018-03-13] MEDS: Atorvastatin Calcium 40 MG TAB PO SCH (21:11)
[2018-03-14] MEDS: Simethicone Chewable 80 MG TAB PO SCH ×4 (08:29→21:46)
[2018-03-14] MEDS: HYDROcodone/Acetaminophen 5/325 mg Tablet PO PRN ×2 (08:29→18:38)
[2018-03-14] MEDS: Furosemide 40 MG TAB PO SCH ×2 (08:29→14:23)
[2018-03-14] MEDS: Carvedilol 6.25 MG TAB PO SCH ×2 (08:29→18:03)
[2018-03-14] MEDS: Aspirin 325 mg Enteric Coated Tablet PO SCH (08:30)
[2018-03-14] MEDS: Famotidine 20 MG TAB PO SCH ×2 (08:30→21:46)
[2018-03-14] MEDS: Amiodarone 200 MG TAB PO SCH ×2 (08:30→21:46)
[2018-03-14] MEDS: Gabapentin 300 MG CAP PO SCH ×3 (08:30→21:46)
[2018-03-14] MEDS: Polyethylene Glycol 3350 17 GM Packet PO SCH (11:38)
--- NOTE | 2018-03-14 12:46 | PDOC.PN ---
- Subjective Encounter Start Date: 03/14/18 Encounter Start Time: 12:00 Doing well. Still a little sore. Was ambulating well, but slowed since he was having some tachycardia. - Objective Resuscitation Status: Resuscitation Status FULL:Full Resuscitation MAR Reviewed: Yes Vital Signs & Weight: Vital Signs (12 hours) Temp Pulse Resp BP BP BP Pulse Ox 03/14/18 11:30 94 20 108/72 99 03/14/18 08:29 142/79 H 03/14/18 07:00 98.7 F 92 18 142/79 H 98 03/14/18 03:55 97.3 F L 71 16 109/64 95 Weight Weight 201 lb 14.4 oz Most Recent Monitor Data Heart Rate from ECG 81 NIBP 109/73 NIBP BP-Mean 85 Respiration from ECG 28 SpO2 88 I&O: 03/13/18 03/14/18 03/15/18 06:59 06:59 06:59 Intake Total 1280 994 Output Total 0951 9445 Balance -944 -9545 Result Diagrams: 03/13/18 04:24 03/13/18 04:24 Phys Exam - Physical Examination Constitutional: NAD Respiratory: no wheezing, no rales, no rhonchi, clear to auscultation bilateral Cardiovascular: RRR, no significant murmur Gastrointestinal: soft, non-tender, no distention, positive bowel sounds Musculoskeletal: no edema Left thigh graft site looks good. Neurological: non-focal Psychiatric: normal affect, A&O x 3 Dx/Plan (1) Atrial fibrillation Code(s): I48.91 - UNSPECIFIED ATRIAL FIBRILLATION Status: Acute (2) Multi-vessel coronary artery stenosis Code(s): I25.10 - ATHSCL HEART DISEASE OF [place] CORONARY ARTERY W/O ANG PCTRS Status: Acute (3) NSTEMI (non-ST elevated myocardial infarction) Code(s): I21.4 - NON-ST ELEVATION (NSTEMI) MYOCARDIAL INFARCTION Status: Acute (4) Status post aorto-coronary artery bypass graft Code(s): Z95.1 - PRESENCE OF AORTOCORONARY BYPASS GRAFT Status: Acute (5) Dyslipidemia Code(s): E78.5 - HYPERLIPIDEMIA, UNSPECIFIED Status: Chronic (6) HTN (hypertension) Code(s): I10 - ESSENTIAL (PRIMARY) HYPERTENSION Status: Chronic Qualifiers: Hypertension type: essential hypertension Qualified Code(s): I10 - Essential (primary) hypertension (7) Obesity (BMI 30.0-34.9) Code(s): E66.9 - OBESITY, UNSPECIFIED Status: Chronic - Plan * Doing very well post-operatively. * Surgery ok with DC when rhythm stable. * EP following. On Amio for Aflutter with RVR. * Rate has been good for 24 hours.
--- NOTE | 2018-03-14 14:00 | PDOC.CTH ---
Cardiology Progress Note - Subjective EP progress note: patient seen and evaluated. No new cardiac concerns or complaints today. Feels well overall. ROS: + heart racing and palpitations -chest pain, dizziness, passing out, stroke like symptoms - Objective Vital Signs Temp Pulse Resp BP BP BP Pulse Ox 03/14/18 11:30 94 20 108/72 99 03/14/18 08:29 142/79 H 03/14/18 07:00 98.7 F 92 18 142/79 H 98 03/14/18 03:55 97.3 F L 71 16 109/64 95 Weight 201 lb 14.4 oz 03/13/18 03/14/18 03/15/18 06:59 06:59 06:59 Intake Total 1280 994 Output Total 7555 6435 Balance -595 -2331 - Physical Examination General/Neuro: alert & oriented x3, NAD Neck: carotid US brisk, no JVD present Lungs: CTA, unlabored respirations Heart: PMI normal, other: (Irreg irreg) Abdomen: NT/ND, soft - Telemetry Telemetry Rhythm: Atrial flutter - Labs Result Diagrams: 03/13/18 04:24 03/13/18 04:24 Troponin/CKMB CK-MB (CK-2) 2.9 ng/mL (0-6.6) 03/05/18 22:39 Troponin I 0.440 ng/mL (< 0.028) H* 03/06/18 07:11 - Assessment/Plan 1. Atrial fibrillation and typical flutter, postoperatively. On amiodarone 400 BID which organized fib into flutter. SR over HS but converted to flutter ~0600 this AM. VR low 100s. Plan for SAMUEL to rule out SUMMER thrombus then proceed with Cavotricuspid isthmus ablation. R/B/A discussed. Pt agrees to ablation tomorrow afternoon. 2. CAD s/p CABG on 03/08/18 3. CHADS2-VASC: 3 (age, HTN, vasc disease) OAC is indicated. Would like therapeutic lovenox started if OK by CV surgery. Will hold AM dose. OAC should be started after RFA 4. Preserved LVEF
--- NOTE | 2018-03-14 16:12 | PDOC.CTH ---
<Sally Aguilar - Last Filed: 03/14/18 16:12> Cardiology Progress Note - Objective Vital Signs Temp Pulse Pulse Pulse Resp BP BP 03/14/18 11:30 94 20 03/14/18 09:32 100 111 H 98/62 03/14/18 08:29 142/79 H 03/14/18 07:07 03/14/18 07:00 98.7 F 92 18 BP BP BP Pulse Ox Pulse Ox Pulse Ox 03/14/18 11:30 108/72 99 03/14/18 09:32 112/59 L 94 L 94 L 03/14/18 08:29 03/14/18 07:07 98 03/14/18 07:00 142/79 H 98 Weight 201 lb 14.4 oz 03/13/18 03/14/18 03/15/18 06:59 06:59 06:59 Intake Total 1280 994 Output Total 9498 4865 Balance -072 -4908 - Labs Result Diagrams: 03/13/18 04:24 03/13/18 04:24 Troponin/CKMB CK-MB (CK-2) 2.9 ng/mL (0-6.6) 03/05/18 22:39 Troponin I 0.440 ng/mL (< 0.028) H* 03/06/18 07:11 - Assessment/Plan 1. Post-Op Afib/Aflutter - Intermittent SR and Aflutter with RVR HR 60-90s with movement. On Amiodarone to 400mg PO BID. Possible Ablation tomorrow by EP. CHADS2-VASC: 3 (age, HTN, vasc disease) and OAC should be started after RFA. 2. CAD with s/p CABG x 6 on 03/08/18 with TOMLINSON to LAD mid and distal (jump), SVG -> Ramus-Diag. ( jump), SVG-> OM, SVG-> distal RCA - stable with Coreg 6.25mg BID, RONALDO, ASA 325mg qd, and Lipitor 40mg qd. 3. HTN: stable with current meds; cont. to monitor 4. Dyslipidemia: on Statin MAR reviewed <Daryl Colon - Last Filed: 03/15/18 09:11> Cardiology Progress Note - Objective Vital Signs Temp Pulse Resp BP BP Pulse Ox 03/15/18 08:26 98.9 F 98 20 154/72 H 95 03/15/18 04:00 98 F 82 18 130/91 H 93 L Weight 201 lb 9.6 oz 03/14/18 03/15/18 03/16/18 06:59 06:59 06:59 Intake Total 994 1000 Output Total 3325 8610 Balance -8755 -6910 - Labs Result Diagrams: 03/13/18 04:24 03/13/18 04:24 Troponin/CKMB CK-MB (CK-2) 2.9 ng/mL (0-6.6) 03/05/18 22:39 Troponin I 0.440 ng/mL (< 0.028) H* 03/06/18 07:11 - Assessment/Plan Pt. seen and eval. by me. I agree with the A/P by the PERSONNEL DIRECTOR. Thanks for EP eval. Plan for flutter ablation in AM. Chest clear. regular rhythm but has atrial flutter on the monitor. Otherwise doing well s/p CABG.
[2018-03-14] MEDS ORDERED: Enoxaparin Sodium 100 MG/ML SYRINGE SC SCH (21:00)
[2018-03-14] MEDS ORDERED: Enoxaparin Sodium 40 MG/0.4 ML SYRINGE SC SCH (21:00)
[2018-03-14] MEDS: Atorvastatin Calcium 40 MG TAB PO SCH (21:46)
[2018-03-15] MEDS: Simethicone Chewable 80 MG TAB PO SCH ×4 (08:05→20:24)
[2018-03-15] MEDS: Furosemide 40 MG TAB PO SCH ×2 (08:15→18:49)
[2018-03-15] MEDS: Bisacodyl 5 MG TAB PO PRN (08:15)
[2018-03-15] MEDS: Gabapentin 300 MG CAP PO SCH ×3 (08:15→20:23)
[2018-03-15] MEDS: Amiodarone 200 MG TAB PO SCH ×2 (08:16→20:23)
[2018-03-15] MEDS: Aspirin 325 mg Enteric Coated Tablet PO SCH (08:16)
[2018-03-15] MEDS: Carvedilol 6.25 MG TAB PO SCH ×2 (08:16→18:48)
[2018-03-15] MEDS: Polyethylene Glycol 3350 17 GM Packet PO SCH (08:17)
[2018-03-15] MEDS: Famotidine 20 MG TAB PO SCH ×2 (09:50→20:23)
[2018-03-15 11:42] VITALS: BMI 30.6
--- NOTE | 2018-03-15 12:36 | PDOC.CTH ---
Cardiology Progress Note - Subjective The pt seen and examined. No overnight events. No cardiac complaints. No dizziness or lightheadedness with low BP. - Objective Vital Signs Temp Pulse Resp BP BP BP BP 03/15/18 12:03 98.1 F 114 H 22 H 94/59 L 03/15/18 09:15 93/60 89/69 L 94/74 03/15/18 08:26 98.9 F 98 20 154/72 H 03/15/18 04:00 98 F 82 18 130/91 H Pulse Ox 03/15/18 12:03 98 03/15/18 09:15 03/15/18 08:26 95 03/15/18 04:00 93 L Admit Weight 204 lb 14.4 oz Weight 201 lb 9.6 oz 03/14/18 03/15/18 03/16/18 06:59 06:59 06:59 Intake Total 994 1000 Output Total 3325 3700 Balance -7261 -2400 - Physical Examination General/Neuro: alert & oriented x3 Neck: no JVD present Lungs: CTA Heart: other: (irregular) Abdomen: soft Extremities: other: (No edema) - Labs Result Diagrams: 03/13/18 04:24 03/13/18 04:24 Troponin/CKMB CK-MB (CK-2) 2.9 ng/mL (0-6.6) 03/05/18 22:39 Troponin I 0.440 ng/mL (< 0.028) H* 03/06/18 07:11 - Assessment/Plan 1. Post-Op Afib/Aflutter - Intermittent SR and Aflutter with RVR HR 60-90s with movement. On Amiodarone to 400mg PO BID. Possible Ablation today by EP. CHADS2-VASC: 3 (age, HTN, vasc disease) and OAC should be started after RFA. 2. CAD with s/p CABG x 6 on 03/08/18 with TOMLINSON to LAD mid and distal (jump), SVG -> Ramus-Diag. ( jump), SVG-> OM, SVG-> distal RCA - stable with Coreg 6.25mg BID, RONALDO, ASA 325mg qd, and Lipitor 40mg qd. 3. HTN: stable with current meds; cont. to monitor 4. Dyslipidemia: on Statin MAR reviewed . Review of Systems - Review of Systems Constitutional: reports: no symptoms reported EENTM: reports: no symptoms reported Respiratory: reports: no symptoms reported Cardiac (ROS): reports: no symptoms reported ABD/GI: reports: no symptoms reported : reports: no symptoms reported
[2018-03-15] MEDS ORDERED: PHENYLEPHRINE-NS 100 MCG/ML 10 ML SYRINGE ONE (13:38)
[2018-03-15] MEDS ORDERED: PROPOFOL 200 MG/20 ML VIAL ONE (13:38)
[2018-03-15] MEDS ORDERED: Heparin 10,000 UNITS/1 ML VIAL ONE (13:57)
[2018-03-15] MEDS ORDERED: Lidocaine 1% (PF) 30 ML VIAL ONE (13:57)
--- NOTE | 2018-03-15 15:28 | PRG ---
DATE OF SERVICE: 03/15/2018 SUBJECTIVE: The patient is doing well. He is anxious over the potential ablation procedure but has no other specific complaints or concerns. OBJECTIVE: VITAL SIGNS: Temperature is 98.1, pulse 114, respirations 22, O2 sat 84% on room air, 98% on 2 liter s. BP 94/59. GENERAL APPEARANCE: Age-appropriate male, he is in no distress. He is awake, alert, oriented, pleas ant, cooperative. HEART: Regular rate and rhythm with intermittent tachycardia. His midline incision looks good. LUNGS: Clear bilaterally. ABDOMEN: Soft, nontender, nondistended, positive bowel sounds. EXTREMITIES: Warm and dry with no edema. IMPRESSION AND PLAN: 1. Postop bypass graft, doing well post surgically. 2. Atrial fibrillation with intermittent rapid ventricular response postoperatively, has been on ami odarone and has ablation planned for today. 3. Non-STEMI, Cardiology following, on Coreg and aspirin. 4. Dyslipidemia, stable, chronic. 5. Hypertension. Continue with treatment for his primary hypertension. 6. Obesity, stable. 7. The patient's BUN and creatinine were slightly up day before yesterday. We will recheck those ag ain today to make sure they are stable postoperatively.
[2018-03-15] MEDS ORDERED: Propofol 1,000 MG/100 ML VIAL IV ONE (15:57)
[2018-03-15] MEDS ORDERED: Fentanyl 100 MCG/2 ML VIAL ONE (15:57)
[2018-03-15] MEDS ORDERED: Lidocaine 2% Jelly 5 ML TUBE ONE (16:39)
[2018-03-15] MEDS ORDERED: DOPamine 400 MG/D5W 250 ML 250 ML ONE (16:40)
[2018-03-15 18:59] LABS: Anion Gap 12 mmol/L (10-20); BUN (Urea Nitrogen) 23 mg/dL (8.4-25.7); Calc. Creatinine Clearance 57 mL/min (70-130); Carbon Dioxide 33 mmol/L (23-31); Chloride 95 mmol/L (98-107); Estimated GFR-MDRD 42; Glucose 106 mg/dL (80-115); Potassium 4.2 mmol/L (3.5-5.1); Sodium 136 mmol/L (136-145)
[2018-03-15] MEDS: HYDROcodone/Acetaminophen 5/325 mg Tablet PO PRN (19:08)
--- NOTE | 2018-03-15 20:12 | OP ---
DATE OF PROCEDURE: 03/15/2018 ELECTROPHYSIOLOGY STUDY AND RADIOFREQUENCY ABLATION REPORT REFERRING PHYSICIAN: Carol Colon MD REASON FOR PROCEDURE: Mr. Reddy is a 67-year-old man with prior history of 3-vessel coronary artery disease requiring bypass grafting surgery about 8 days prior. Post bypass surgery, he developed atr ial fibrillation requiring amiodarone suppression. Eventually it organized the rhythm to atrial flut ter, appeared to be typical isthmus-dependent. He was on and off from sinus rhythm to atrial flutter with rapid rates. He was on Lovenox for anticoagulation yesterday and duration of the flutter is le ss than 48 hours. He is here for ablation procedure. DESCRIPTION OF PROCEDURE: The patient received propofol by Anesthesia specialist. After adequate le nellie of sedation achieved, the right femoral venous area was prepped, draped, and anesthetized using s ubcutaneous lidocaine with ultrasound guidance. The right femoral vein was cannulated x2. Two 8-Wilber nch short sheath was introduced through which a ThermoCool SF ST catheter was advanced to the right a trium and right atrial His bundle map was obtained. The cavotricuspid isthmus were clearly del ineated. Following that, a decapolar catheter was entered into the CS position. The baseline rhythm was atrial flutter with cycle length of 247 milliseconds. The post-pacing interval on the cavotricu spid isthmus matches exactly the tachycardia cycle length, suggested isthmus-dependent flutter. The QRS is 69 milliseconds, QT 350 milliseconds, AH 180 milliseconds, HV 35 milliseconds were noted. Sin us node recovery time is 1395, corrected 350 milliseconds. AV Wenckebach cycle length was 360 millis econds. The AV papi ERP was 600/240 milliseconds. No dual AV papi physiology was observed. Burst atrial pacing down to 200 milliseconds cycle length did not re-induce atrial arrhythmia after ablati on. Cavotricuspid isthmus ablation was performed during atrial flutter with total of 1 minute and 26 seco nds, total of 3 lesions were delivered at 40 salvador. This ablation has terminated atrial flutter. Fo llowing that, we worked with proximal CS pacing and further ablation lesions were delivered to prolon g the transisthmus time to 160 milliseconds. Unilateral block was demonstrated by longest transisthm us time adjacent to the ablation line. CONCLUSION: 1. Typical atrial flutter present at baseline. 2. Cavotricuspid isthmus ablation eliminated atrial flutter and re-inducibility. 3. Normal sinus and AV papi function, no definite evidence of accessory pathway. 4. Cardiac silhouette did not change with ablation. No complication noted. PLAN: Start oral anticoagulation. Continue amiodarone short-term. Consider weaning it in 2-3 month s post bypass surgery. If recurrent atrial fibrillation seen, the patient could be a good candidate for pulmonary venous isolation procedure.
[2018-03-15] MEDS: Atorvastatin Calcium 40 MG TAB PO SCH (20:23)
--- NOTE | 2018-03-16 08:48 | PDOC.CTH ---
<Sally Aguilar - Last Filed: 03/16/18 11:05> Cardiology Progress Note - Subjective The pt seen and examined. No overnight events. No cardiac complaints. - Objective Vital Signs Temp Pulse Resp BP Pulse Ox 03/16/18 08:00 99.0 F 64 17 108/62 96 03/16/18 04:00 98.4 F 63 15 111/70 92 L Admit Weight 204 lb 14.4 oz Weight 197 lb 1.6 oz 03/15/18 03/16/18 03/17/18 06:59 06:59 06:59 Intake Total 1000 733 Output Total 3700 2520 Balance -9750 -9091 - Physical Examination General/Neuro: alert & oriented x3 Neck: no JVD present Lungs: CTA Heart: RRR Abdomen: soft Extremities: other: (No edema) - Telemetry Telemetry Rhythm: SR 60s - Labs Result Diagrams: 03/13/18 04:24 03/15/18 18:08 Troponin/CKMB CK-MB (CK-2) 2.9 ng/mL (0-6.6) 03/05/18 22:39 Troponin I 0.440 ng/mL (< 0.028) H* 03/06/18 07:11 - Assessment/Plan 1. Post-Op Afib/Aflutter and S/p Cavotricuspid isthmus Ablation on 03/15/18 - Remains in SR since ablation yesterday. On Amiodarone to 400mg PO BID. CHADS2- VASC: 3 (age, HTN, vasc disease); however, cont. ASA 325mg qd for now due to hx of bleeding to MSI which required 3 sutures. 2. CAD with s/p CABG x 6 on 03/08/18 with TOMLINSON to LAD mid and distal (jump), SVG -> Ramus-Diag. ( jump), SVG-> OM, SVG-> distal RCA - stable with Coreg 6.25mg BID, RONALDO, ASA 325mg qd, and Lipitor 40mg qd. 3. HTN: stable with current meds; cont. to monitor 4. Dyslipidemia: on Statin 5. Sleep Apnea - Even after long conversation about Sleep Apnea and the risk to his health, he cont. refusing Cpap at home. MAR reviewed * From Cardiac standpoint, the pt is stable to d/c home. The pt will f/u with Dr Colon' office within 1 wk. * CHADS2-VASC: 3 (age, HTN, vasc disease); however, cont. ASA 325mg qd for now due to hx of bleeding to MSI which required 3 sutures. Review of Systems - Review of Systems Constitutional: reports: no symptoms reported EENTM: reports: no symptoms reported Respiratory: reports: no symptoms reported Cardiac (ROS): reports: no symptoms reported ABD/GI: reports: no symptoms reported : reports: no symptoms reported Musculoskeletal: reports: no symptoms reported <Daryl Colon - Last Filed: 03/16/18 20:56> Cardiology Progress Note - Objective Vital Signs Temp Pulse Pulse Pulse Resp BP BP 03/16/18 16:00 98.2 F 63 16 03/16/18 12:00 99.0 F 61 17 03/16/18 09:44 67 67 126/70 03/16/18 09:31 103/67 BP BP Pulse Ox Pulse Ox Pulse Ox 03/16/18 16:00 110/63 95 03/16/18 12:00 102/61 93 L 03/16/18 09:44 111/59 L 99 100 03/16/18 09:31 Admit Weight 204 lb 14.4 oz Weight 197 lb 1.6 oz 03/15/18 03/16/18 03/17/18 06:59 06:59 06:59 Intake Total 1000 733 Output Total 3700 2520 Balance -5980 -5275 - Labs Result Diagrams: 03/13/18 04:24 03/15/18 18:08 Troponin/CKMB CK-MB (CK-2) 2.9 ng/mL (0-6.6) 03/05/18 22:39 Troponin I 0.440 ng/mL (< 0.028) H* 03/06/18 07:11 - Assessment/Plan Pt. seen and eval. by me. I agree with the A/P by the VESSEL TRAFFIC OFFICER He is maintaining NSR after the atrial flutter ablation.Continue amiodarone. F/U with me in 2-4 weeks. Chest clear. RRR.
[2018-03-16] MEDS: Furosemide 40 MG TAB PO SCH ×2 (09:30→14:10)
[2018-03-16] MEDS: Famotidine 20 MG TAB PO SCH (09:31)
[2018-03-16] MEDS: Simethicone Chewable 80 MG TAB PO SCH ×3 (09:31→17:53)
[2018-03-16] MEDS: Amiodarone 200 MG TAB PO SCH (09:31)
[2018-03-16] MEDS: Carvedilol 6.25 MG TAB PO SCH ×2 (09:31→17:53)
[2018-03-16] MEDS: Gabapentin 300 MG CAP PO SCH ×2 (09:31→16:07)
[2018-03-16] MEDS: Polyethylene Glycol 3350 17 GM Packet PO SCH (09:31)
[2018-03-16] MEDS: Aspirin 325 mg Enteric Coated Tablet PO SCH (09:31)
[2018-03-16 16:11] VITALS: BP 110/63; TEMP 98.2
--- NOTE | 2018-03-16 22:09 | PRG ---
DATE OF SERVICE: 03/16/2018 ELECTROPHYSIOLOGY FOLLOWUP NOTE SUBJECTIVE: Mr. Reddy seems to be doing well one day after his ablation procedure. OBJECTIVE DATA: VITAL SIGNS: Blood pressure is 103/67, heart rate 61, respirations 17, oxygen saturation 93%-95%. GENERAL: Reveals alert and oriented man in no apparent distress. NECK: Supple. Jugular veins not distended. CHEST: Coarse without crackles. Midsternal scar is healing adequately. HEART: Sounds are regular to rate and rhythm. No murmur or gallop. ABDOMEN: Benign. Bowel sounds positive. EXTREMITIES: No edema, clubbing or cyanosis. Right groin catheter insertion sites are healing well. DATABASE: EKG reveals sinus rhythm. No recurrent atrial flutter is noted. No atrial fibrillation. LABORATORY DATA: None new. ASSESSMENT AND PLAN: Mr. Reddy is a pleasant 67-year-old man with history of multivessel coronary artery disease requiring bypass surgery this admission. He developed postoperative atrial fibrillation and flutter, atrial fibrillation is suppressed, but he had intermittent, difficult to rate control - atrial flutter episodes.He underwent radiofrequency ablation of his atrial flutter. He tolerated the procedure well and there is no recurrent flutter noted. I find him stable for discharge from the EP standpoint, he might benefit from short-term anticoagulation with Eliquis and for now, we will continue Ambien for about 2 months. Monitor for recurrence of atrial arrhythmias. If atriaol fib recurs, he might be a reasonable candidate for pulmonary venous isolation procedure. 6 weeks followup requested. FRANSISCO
== END 2018-03-16 18:28 | disposition home or self-care (01) | DRG 233 ==
LOC: ERS 22:27 → 2SW 23:45 → OBSVTOIN 03-07 09:56 → 2NO 03-07 12:26 → CCU 03-08 08:45 → 2NO 03-09 14:26
PROVIDERS: ADMIT Hospitalist; ATTEND Hospitalist
PROC: 4A023N7 Measurement of Cardiac Sampling and Pressure, Left Heart, Percutaneous Approach (ICD-10-PCS; 2018-03-07)
PROC: B2111ZZ Fluoroscopy of Multiple Coronary Arteries using Low Osmolar Contrast (ICD-10-PCS; 2018-03-07)
PROC: B2151ZZ Fluoroscopy of Left Heart using Low Osmolar Contrast (ICD-10-PCS; 2018-03-07)
PROC: 021309W Bypass Coronary Artery, Four or More Arteries from Aorta with Autologous Venous Tissue, Open Approach (ICD-10-PCS; principal; 2018-03-08)
PROC: 02100Z9 Bypass Coronary Artery, One Artery from Left Internal Mammary, Open Approach (ICD-10-PCS; 2018-03-08)
PROC: 06BQ4ZZ Excision of Left Saphenous Vein, Percutaneous Endoscopic Approach (ICD-10-PCS; 2018-03-08)
PROC: 5A1221Z Performance of Cardiac Output, Continuous (ICD-10-PCS; 2018-03-08)
PROC: 02583ZZ Destruction of Conduction Mechanism, Percutaneous Approach (ICD-10-PCS; 2018-03-15)
DX: I21.4 Non-ST elevation (NSTEMI) myocardial infarction (principal); J96.01 Acute respiratory failure with hypoxia; J96.02 Acute respiratory failure with hypercapnia; I48.92 Unspecified atrial flutter; I25.10 Atherosclerotic heart disease of native coronary artery without angina pectoris; Z79.82 Long term (current) use of aspirin; I48.91 Unspecified atrial fibrillation; I10 Essential (primary) hypertension; Z98.1 Arthrodesis status; M15.9 Polyosteoarthritis, unspecified; E78.5 Hyperlipidemia, unspecified; E66.9 Obesity, unspecified; Z68.30 Body mass index [BMI] 30.0-30.9, adult; Z79.01 Long term (current) use of anticoagulants; G47.33 Obstructive sleep apnea (adult) (pediatric); Z53.29 Procedure and treatment not carried out because of patient's decision for other reasons
CPT/HCPCS: 36415; 36416; 36430; 71045; 76942; 78452; 80048; 80053; 80061; 80076; 82550; 82553; 82565; 82728; 82805; 83036; 83540; 83550; 83735; 84439; 84443; 84481; 84484; 85014; 85018; 85025; 85049; 85610; 85730; 86850; 86900; 86901; 93005; 93010; 93017; 93458; 93613; 93623; 93653; 93798; 94760; 99406; A9500; C1730; C1769; J0282; J1265; J1642; J1644; J1650; J1815; J1885; J2001; J2150; J2250; J2405; J2440; J2704; J2720; J2785; J3010; J3370; J3475; J3480; J7050; J7070; P9045; S0017; S0028

== ENCOUNTER 2018-03-22 12:25 | Observation (INO) | payer MEDICARE, BC ==
[2018-03-22 12:44] LABS: #Eosinphils 0.1 thou/uL (0.0-0.7); #Neutrophils 10.7 thou/uL (1.40-6.50); %Basophils 0.2 % (0.0-1.0); %Lymphocytes 7.4 % (21.0-51.0); %Monocytes 7.5 % (0.0-10.0); %Neutrophils 83.9 % (42.0-75.0); Hemoglobin 11.1 g/dL (14.0-18.0); Mean Corpuscular HGB CONC 32.8 g/dL (32.0-36.0); Mean Corpuscular Hemoglobin 30.2 pg (27.0-31.0); Mean Corpuscular Volume 91.9 fL (78.0-98.0); Mean Platelet Volume 6.6 fL (7.4-10.4); Platelet Count 410 thou/uL (130-400); RBC Distribution Width 11.1 % (11.5-14.5); Red Blood Cell (RBC) Count 3.68 mill/uL (4.70-6.10); White Blood Cell (WBC) Count 12.8 thou/uL (4.8-10.8)
[2018-03-22 13:07] LABS: ALT (SGPT) 42 U/L (8-55); AST (SGOT) 29 U/L (5-34); Albumin 3.9 g/dL (3.4-4.8); Alkaline Phosphatase 95 U/L (40-150); Anion Gap 15 mmol/L (10-20); BUN (Urea Nitrogen) 40 mg/dL (8.4-25.7); Bilirubin, Total 1.1 mg/dL (0.2-1.2); CK (CPK) 51 U/L (30-200); Calc. Creatinine Clearance 0 mL/min (70-130); Calcium 9.1 mg/dL (7.8-10.44); Carbon Dioxide 31 mmol/L (23-31); Chloride 91 mmol/L (98-107); Estimated GFR-MDRD 36; Globulin 3.6 g/dL (2.4-3.5); Glucose 196 mg/dL (80-115); Lipase 26 U/L (8-78); Potassium 3.3 mmol/L (3.5-5.1); Protein, Total 7.5 g/dL (5.8-8.1); Sodium 134 mmol/L (136-145)
[2018-03-22 13:09] LABS: CKMB 0.9 ng/mL (0-6.6); Troponin I 0.049 ng/mL (< 0.028)
--- NOTE | 2018-03-22 13:52 | RAD ---
CHEST ONE VIEW: History: Chest pain. Comparison: 03-13-18 FINDINGS: The central venous catheter has been removed. Heart size is enlarged. No pneumothorax. No significant effusion. Multiple midline sternotomy wires. IMPRESSION: Mild cardiomegaly. POS: [facility]
--- NOTE | 2018-03-22 14:59 | HP ---
PRIMARY CARE PHYSICIAN: City call admission. REASON FOR ADMISSION: Chest pain, acute kidney injury, dizziness. HISTORY OF PRESENT ILLNESS: A 67-year-old male who has history of three-vessel coronary artery disea se who required CABG, who came to emergency room with the above-mentioned complaint. This patient was admitted in our hospital on 03/06/2018, at that time he had chest pain. He underwen t stress test that was abnormal and subsequently, he underwent cardiac catheterization by Dr. Darlene alejandra d the patient was found with three-vessel coronary artery disease and CABG was recommended. The antwan ent underwent CABG by Dr. Marcell Paiz on March 08, 2018 and CABG x6 was performed. After CABG, t he patient's hospital course was complicated by atrial fibrillation/atrial flutter and electrophysiol ogist was following. During that admission, the patient had radiofrequency ablation for atrial flutt er. Patient was treated with amiodarone drip and subsequently amiodarone taper was started. Patient was discharged home on March 16, 2018. After discharge, the patient was not taking aspirin because of his misunderstanding. He was only sarah ing Eliquis. The patient reports that yesterday he saw Dr. Colon. At that time, he reported that he is feeling a little bit dizziness and that is why Dr. Colon advised to hold gabapentin. Rest of medic ation was continued. The patient started taking aspirin yesterday along with Eliquis. During this p eriod, the patient was taking Lasix. The patient was taking amiodarone 200 mg twice daily and his pu lse was running low. This morning, the patient woke up at that time he was perfectly fine. He went outside and then when he returned at that point, he was experiencing right-sided chest pain which was pleuritic in nature, it was getting worse with deep breathing. It was sharp in nature about 8/10 in intensity. There was no associated cough or hemoptysis. He was not feeling any shortness of breath. He denies any chest pain related with exertion. He denies any UTI symptoms. He denies any constipation or diarrhea. H e denies any acid reflux. He denies any fever or chills. He denies any cough. He denies any trauma . He denies any heavy lifting. When patient came to Emergency Room, he had slight leukocytosis. He had elevated creatinine from nor mal to 1.86. His troponin is slightly indeterminant range, which is tending down from previous. The patient is being admitted to telemetry floor for chest discomfort as well as acute kidney injury. ALLERGIES: No known drug allergy. CURRENT HOME MEDICATIONS: [place] 5 one or two tablets q.8 hourly p.r.n., amiodarone 200 mg twice omari y, Eliquis 5 mg p.o. twice daily, aspirin 81 mg daily, Lasix 40 mg p.o. b.i.d., gabapentin 300 mg p.o . t.i.d., Lipitor 40 mg p.o. at bedtime. REVIEW OF SYSTEMS: The following complete review of systems was negative, unless otherwise mentioned in the HPI or below: Constitutional: Weight loss or gain, ability to conduct usual activities. Skin: Rash, itching. Eyes: Double vision, pain. ENT/Mouth: Nose bleeding, neck stiffness, pain, tenderness. Cardiovascular: Palpitations, dyspnea on exertion, orthopnea. Respiratory: Shortness of breath, wheezing, cough, hemoptysis, fever or night sweats. Gastrointestinal: Poor appetite, abdominal pain, heartburn, nausea, vomiting, constipation, or diarr hea. Genitourinary: Urgency, frequency, dysuria, nocturia. Musculoskeletal: Pain, swelling. Neurologic/Psychiatric: Anxiety, depression. Allergy/Immunologic: Skin rash, bleeding tendency. Please see my HPI for pertinent positive and negative. All other review of systems reviewed and nega tive except as mentioned in the HPI. PAST MEDICAL HISTORY: Recent history of three-vessel coronary artery disease, required CABG, hyperte nsion, dyslipidemia, post-CABG, patient's hospital course was complicated by atrial flutter/atrial fi brillation. PAST SURGICAL HISTORY: Back surgery, bilateral shoulder surgery, CABG x6, abdominal surgery, cardiac catheterization. PAST PSYCHIATRIC HISTORY: Reviewed and negative. SOCIAL HISTORY: Patient chews tobacco. He denies any smoking. He denies any alcohol abuse. He is and lives at home with his . FAMILY HISTORY: Father had coronary artery disease by age of 87, no family history of diabetes, hype rtension, stroke, or cancer. EMERGENCY ROOM COURSE: Reviewed. PHYSICAL EXAMINATION: VITAL SIGNS: On arrival, blood pressure 126/79, pulse 58, respiratory rate 16, temperature 98.1, sat uration 98% on room air, weight 88.9 kilograms. GENERAL: Patient is currently alert, awake, in no obvious acute distress. HEENT: Normocephalic, atraumatic. Eyes: Pupils round, reactive to light. Extraocular muscle intac t. ENT: Oropharynx within normal limits. Moist mucous membranes, no oral lesion, no pharyngeal erythem a, no exudate. NECK: Supple, no JVD, no thyromegaly, no carotid bruit. LUNGS: Clear to auscultation without any rhonchi or rales. CARDIAC: S1, S2 regular. Patient has right-sided chest discomfort on palpation. CARDIOVASCULAR: S1, S2, regular without any murmur. ABDOMEN: Soft, bowel sounds present, nontender, nondistended. No organomegaly, no mass, no suprapub ic tenderness. CHEST WALL: The patient does have right-sided reproducible discomfort. Surgical site is clean and h ealthy. ABDOMEN: Soft, bowel sounds present, nontender, nondistended. No organomegaly, no mass, no suprapub ic tenderness. BACK: Unremarkable, no CVA tenderness. EXTREMITIES: Upper extremity, passive movement of all joints are normal. Lower extremities, no rachana ma. Good distal pulsation. SKIN: No skin rash. HEMATOLOGICAL: No lymphadenopathy. PSYCHIATRIC: Normal affect. SIGNIFICANT LABORATORY DATA: EKG showing sinus bradycardia, nonspecific ST-T changes in anterolatera l and inferior leads. Chest x-ray based on my review, mild cardiomegaly. CBC: WBC 12.8, hemoglobin 11.1, platelet 410. B MP: Sodium 134, potassium 3.3, chloride 91, carbon dioxide 31, BUN 40, creatinine 1.86, glucose 196, calcium 9.1. LFT: AST 29, ALT 41, alkaline phosphatase 95, albumin 3.9, lipase 26. CK 51, CK-MB 0 .9, troponin 0.049. ASSESSMENT AND PLAN: 1. Chest pain, right-sided. This patient's troponin is slightly indeterminant range, but previously , his troponin was significantly abnormal and now troponin is just trending downward. His pain descr iption is not consistent with angina. At this point, we are going to do ventilation perfusion scan t o rule out any thromboembolic disorder. His creatinine is elevated and that is why we have to do a V Q scan. We will check a D-dimer as well. 2. Dizziness likely due to prerenal etiology. We will check orthostatic vitals. Patient will be gi nohemi gentle IV fluid NS at 75 mL per hour for 1 liter. We will hold on Lasix therapy. 3. Coronary artery disease, required coronary artery bypass grafting x6. Continue aspirin 325 mg p. o. daily, Lipitor 40 mg p.o. daily, Coreg 6.25 mg p.o. b.i.d. 4. History of atrial flutter/fibrillation required ablation, currently on anticoagulation therapy 5 mg p.o. b.i.d. Cardiology will be consulted during this admission. Continue amiodarone 200 mg p.o. twice daily and Coreg 6.25 mg p.o. b.i.d., monitor for any bradycardia. Medication adjustment will b e done during this admission. 5. Hypertension, currently well controlled. Continue Coreg 6.25 mg p.o. b.i.d. 6. Acute kidney injury likely due to diuresis. The patient will be given gentle IV fluid and we adiel l repeat BMP tomorrow. The patient may not need any Lasix therapy. 7. Mild hyponatremia, hypochloremia, and hypokalemia. The patient will be given IV fluid with potas sium and will repeat BMP tomorrow. We will check magnesium. 8. Anemia, normocytic, normochromic. Ferrous sulfate 325 mg p.o. will be given. 9. Deep venous thrombosis prophylaxis. Patient is already on Eliquis therapy. 10. Gastrointestinal prophylaxis. Pepcid 20 mg p.o. daily. CODE STATUS: Patient is FULL CODE. Patient's is surrogate decision maker. DISPOSITION/PLAN: Based on clinical course and cardiology recommendations. Plan of care discussed w ith the patient and family member at bedside in the emergency room.
[2018-03-22 15:34] VITALS: BMI 30.5
--- NOTE | 2018-03-22 15:35 | NM ---
VQ SCAN: 03/22/18 HISTORY: Chest pain. TECHNIQUE: A ventilation perfusion scan was performed using 18.8 millicuries [place] 33 inhalation for ventilation study followed by the intravenous administration of 6 millicuries of technetium 99m - MAA for the pe rfusion scan. FINDINGS: Correlation is made with a chest radiograph of the same date. Fairly homogeneous tracer distribution is seen in the lungs on both sides ventilation perfusion without mismatch pleural based wedge shaped segmental/subsegmental perfusion defects. No significant tracer retention seen on the washout phase of the ventilation study. IMPRESSION: Low probability for pulmonary embolism. POS: [facility]
[2018-03-22 17:01] LABS: Troponin I 0.044 ng/mL (< 0.028)
[2018-03-22] MEDS ORDERED: Metoclopramide HCl 10 MG/2 ML VIAL IVP PRN (17:25)
[2018-03-22] MEDS ORDERED: hydrALAZINE 20 MG/ML VIAL SLOW IVP PRN (17:25)
[2018-03-22] MEDS ORDERED: NS 0.9% w/ 20 MEQ KCL 1,000 ML/1,000 ML BAG IV SCH (17:25)
[2018-03-22] MEDS ORDERED: Bisacodyl 10 MG SUPP PR PRN (17:25)
[2018-03-22] MEDS ORDERED: Cepastat Lozenges 1 LOZ PO PRN (17:25)
[2018-03-22] MEDS ORDERED: Nitroglycerin 0.4 MG TAB (25 Tab Bottle) SL PRN (17:25)
[2018-03-22] MEDS ORDERED: Senokot S 8.6-50 MG TAB PO PRN (17:25)
[2018-03-22] MEDS ORDERED: Zolpidem Tartrate 5 MG TAB PO PRN (17:25)
[2018-03-22] MEDS ORDERED: Acetaminophen 325 MG TAB PO PRN (17:25)
[2018-03-22] MEDS ORDERED: Bisacodyl 5 MG TAB PO PRN (17:25)
[2018-03-22] MEDS ORDERED: Diabetic Tussin 200 MG/10 ML UDCUP PO PRN (17:25)
[2018-03-22] MEDS ORDERED: Loperamide HCl 2 MG CAP PO PRN (17:25)
[2018-03-22] MEDS ORDERED: Eucerin (Mineral Oil/Petrolatum,White) 30 gm Jar TOP PRN (17:25)
[2018-03-22] MEDS ORDERED: Artificial Tears 18 DROP/0.9 ML EA EYE PRN (17:25)
[2018-03-22] MEDS ORDERED: Sodium Chloride 0.65% Nasal 44 ML BOT EA NARE PRN (17:25)
[2018-03-22] MEDS: HYDROcodone/Acetaminophen 5/325 mg Tablet PO PRN ×2 (18:38→22:14)
[2018-03-22 19:25] LABS: Troponin I 0.049 ng/mL (< 0.028)
[2018-03-22] MEDS ORDERED: Atorvastatin Calcium 40 MG TAB PO SCH (21:00)
[2018-03-22] MEDS: Apixaban 5 MG TAB PO SCH (21:25)
[2018-03-22] MEDS: Amiodarone 200 MG TAB PO SCH (21:25)
[2018-03-23 05:08] LABS: #Basophils 0.1 thou/uL (0.0-0.2); #Eosinphils 0.1 thou/uL (0.0-0.7); #Lymphocytes 1.9 thou/uL (1.20-3.40); #Neutrophils 7.5 thou/uL (1.40-6.50); %Basophils 0.5 % (0.0-1.0); %Eosinophils 1.1 % (0.0-10.0); %Lymphocytes 17.7 % (21.0-51.0); %Monocytes 9.8 % (0.0-10.0); Anion Gap 12 mmol/L (10-20); BUN (Urea Nitrogen) 33 mg/dL (8.4-25.7); Calc. Creatinine Clearance 71 mL/min (70-130); Calcium 8.7 mg/dL (7.8-10.44); Carbon Dioxide 31 mmol/L (23-31); Chloride 95 mmol/L (98-107); Estimated GFR-MDRD 55; Glucose 121 mg/dL (80-115); Hemoglobin 9.6 g/dL (14.0-18.0); Mean Corpuscular Hemoglobin 28.5 pg (27.0-31.0); Mean Corpuscular Volume 91.8 fL (78.0-98.0); Mean Platelet Volume 6.7 fL (7.4-10.4); Platelet Count 436 thou/uL (130-400); Potassium 3.4 mmol/L (3.5-5.1); RBC Distribution Width 11.2 % (11.5-14.5); Red Blood Cell (RBC) Count 3.36 mill/uL (4.70-6.10); Sodium 135 mmol/L (136-145); White Blood Cell (WBC) Count 10.6 thou/uL (4.8-10.8)
[2018-03-23] MEDS ORDERED: Carvedilol 6.25 MG TAB PO SCH (08:00)
[2018-03-23 08:10] VITALS: BP 103/64; TEMP 98.8
[2018-03-23] MEDS ORDERED: Aspirin 325 mg Enteric Coated Tablet PO SCH (09:00)
[2018-03-23] MEDS: Amiodarone 200 MG TAB PO SCH (09:00)
[2018-03-23] MEDS ORDERED: Famotidine 20 MG TAB PO SCH (09:00)
[2018-03-23] MEDS: Apixaban 5 MG TAB PO SCH (09:00)
--- NOTE | 2018-03-23 10:39 | PDOC.PN ---
- Subjective Encounter Start Date: 03/23/18 Encounter Start Time: 08:45 Subjective: no chest pain or sob -: feels good, wants to go home - Objective Resuscitation Status: Resuscitation Status FULL:Full Resuscitation MAR Reviewed: Yes Vital Signs & Weight: Vital Signs (12 hours) Temp Pulse Resp BP BP Pulse Ox 03/23/18 09:00 103/64 03/23/18 07:17 98.8 F 55 L 16 103/64 97 03/23/18 04:10 98.3 F 58 L 96 H 115/69 18 L 03/22/18 23:12 98.7 F 56 L 16 99/58 L 96 Weight Weight 201 lb I&O: 03/22/18 03/23/18 03/24/18 06:59 06:59 06:59 Intake Total 300 1000 Balance 300 1000 Result Diagrams: 03/23/18 04:30 03/23/18 04:30 Phys Exam - Physical Examination HEENT: PERRLA, moist MMs Neck: no JVD, supple Respiratory: no wheezing, no rales Cardiovascular: RRR, no significant murmur Gastrointestinal: soft, non-tender, positive bowel sounds Musculoskeletal: no edema, pulses present Neurological: non-focal, moves all 4 limbs Psychiatric: normal affect, A&O x 3 Dx/Plan (1) Chest pain Code(s): R07.9 - CHEST PAIN, UNSPECIFIED Status: Acute Qualifiers: Chest pain type: unspecified Qualified Code(s): R07.9 - Chest pain, unspecified (2) Atrial fibrillation Code(s): I48.91 - UNSPECIFIED ATRIAL FIBRILLATION Status: Chronic Qualifiers: Atrial fibrillation type: paroxysmal Qualified Code(s): I48.0 - Paroxysmal atrial fibrillation (3) Obesity (BMI 30.0-34.9) Code(s): E66.9 - OBESITY, UNSPECIFIED Status: Chronic (4) HTN (hypertension) Code(s): I10 - ESSENTIAL (PRIMARY) HYPERTENSION Status: Chronic Qualifiers: Hypertension type: essential hypertension (5) Dyslipidemia Code(s): E78.5 - HYPERLIPIDEMIA, UNSPECIFIED Status: Chronic (6) Status post aorto-coronary artery bypass graft Code(s): Z95.1 - PRESENCE OF AORTOCORONARY BYPASS GRAFT Status: Acute Comment: done on 03/08/2018 - Plan hemostable -: dc pt home -: to f/u with on 7th * . Review of Systems - Medications/Allergies Allergies/Adverse Reactions: Allergies Allergy/AdvReac Type Severity Reaction Status Date / Time No Known Allergies Allergy Verified 03/06/18 01:35 Medications: Current Medications Acetaminophen (Tylenol) 650 mg PO Q4H PRN PRN Reason: Headache/Fever/Mild Pain (1-3) Hydrocodone Bitart/Acetaminophen ([place] 5/325) 1 tab PO Q4H PRN PRN Reason: Moderate Pain (4-6) Last Admin: 03/22/18 22:14 Dose: 1 tab Amiodarone HCl (Cordarone) 200 mg PO BID [facility] Last Admin: 03/23/18 09:00 Dose: 200 mg Apixaban (Eliquis) 5 mg PO BID [facility] Last Admin: 03/23/18 09:00 Dose: 5 mg Artificial Tears (Tears Naturale) 2 drop EA EYE PRN PRN PRN Reason: Dry Eyes Aspirin (Aspirin Chewable) 81 mg PO DAILY [facility] Last Admin: 03/23/18 09:01 Dose: 81 mg Atorvastatin Calcium (Lipitor) 40 mg PO HS [facility] Last Admin: 03/22/18 21:25 Dose: 40 mg Bisacodyl (Dulcolax) 10 mg PO DAILYPRN PRN PRN Reason: Constipation Bisacodyl (Dulcolax) 10 mg AL DAILYPRN PRN PRN Reason: Constipation Carvedilol (Coreg) 6.25 mg PO BID[facility] Last Admin: 03/23/18 09:00 Dose: 6.25 mg Famotidine (Pepcid) 20 mg PO DAILY [facility] Last Admin: 03/23/18 09:01 Dose: 20 mg Guaifenesin (Robitussin Sf) 200 mg PO Q4H PRN PRN Reason: Cough Hydralazine HCl (Apresoline) 10 mg SLOW IVP Q4H PRN PRN Reason: SBP > 180 and HR < 70 Loperamide HCl (Imodium) 2 mg PO PRN PRN PRN Reason: Diarrhea/Loose Stools Metoclopramide HCl (Reglan) 5 mg IVP Q4H PRN PRN Reason: Nausea Mineral Oil/White Petrolatum (Eucerin Cream) 0 gm TOP BIDPRN PRN PRN Reason: Dry Skin Nitroglycerin (Nitrostat) 0.4 mg SL Q5MIN PRN PRN Reason: Chest Pain Senna/Docusate Sodium (Senokot S) 2 tab PO BID PRN PRN Reason: Constipation Sodium Chloride ([place] Nasal [place] 0.65%) 0 ml EA NARE QIDPRN PRN PRN Reason: Nasal Congestion Sodium Chloride (Flush - Normal Saline) 10 ml IVF Q12HR DAWN Last Admin: 03/23/18 09:01 Dose: Not Given Sodium Chloride (Flush - Normal Saline) 10 ml IVF PRN PRN PRN Reason: Saline Flush Throat Lozenges (Cepastat Lozenges) 1 loco PO Q2H PRN PRN Reason: Sore Throat Zolpidem Tartrate (Ambien) 5 mg PO HSPRN PRN PRN Reason: Insomnia Last Admin: 03/22/18 21:25 Dose: 5 mg
--- NOTE | 2018-03-24 07:40 | DIS ---
DATE OF ADMISSION: 03/22/2018 DATE OF DISCHARGE: 03/23/2018 DISCHARGE DISPOSITION: To home. PRIMARY DISCHARGE DIAGNOSES: Chest pain, which is noncardiac. Recent CABG done on the of last month. SECONDARY DISCHARGE DIAGNOSES: Hypertension, dyslipidemia, paroxysmal atrial fibrillation, obesity. PROCEDURES DONE DURING HOSPITALIZATION: X-ray done showed mild cardiomegaly; otherwise no acute infiltrate. V/Q scan done showed low probability for PE. H& H 9 and 30, platelet count 436. BUN and creatinine is 33 and 1.3. Troponin I was 0.04, CK-MB 0.9. DISCHARGE MEDICATIONS: Amiodarone 200 mg p.o. daily, Eliquis 5 mg twice daily, aspirin 81 mg daily, atorvastatin 40 mg p.o. at bedtime, Coreg 6.25 mg p.o. twice daily, [place] p.r.n. for pain. ALLERGIES: No known drug allergies. DISCHARGE PLAN: Patient to follow up with Dr. Paiz on the of this month and he also needs to follow up with primary care physician in 1 week. BRIEF COURSE DURING HOSPITALIZATION: Patient initially came in with complaints of right-sided chest pain, which was worse with deep breathing and coughing. Patient has had CABG done on 03/08/2018 here. In view of this history, he had a V/Q scan done which showed low probability for PE. Chest x-ray done showed no acute infiltrate. Patient was also bradycardic with heart rates dipping into 50s. His amiodarone was reduced to 200 mg daily. He has remained hemodynamically stable. Patient's troponin was indeterminate, but has been ambulating with no current symptoms this morning. He has followup with Dr. Paiz on the . He was counseled with regards to medication compliance and followups. Please see a [id number] documentation on [facility] for the day of discharge. [facility]
--- NOTE | 2018-03-25 23:07 | EKG ---
Test Reason : CP Blood Pressure : / mmHG Vent. Rate : 056 BPM Atrial Rate : 056 BPM P-R Int : 134 ms QRS Dur : 108 ms QT Int : 524 ms P-R-T Axes : 049 047 -57 degrees QTc Int : 505 ms Sinus bradycardia Prolonged QT Abnormal ECG Confirmed by LINA BASSETT ([id number]), city editor EDUIN KHALIL ([id number]) on 03/25/2018 11:07:20 PM Referred By: Confirmed By:LINA BASSETT
== END 2018-03-23 10:50 | disposition home or self-care (01) ==
LOC: ERS 12:25 → 2SW 13:35
PROVIDERS: ADMIT Internal Medicine; ATTEND Internal Medicine
DX: R07.89 Other chest pain (principal); I25.10 Atherosclerotic heart disease of native coronary artery without angina pectoris; N17.9 Acute kidney failure, unspecified; R42 Dizziness and giddiness; I48.92 Unspecified atrial flutter; I10 Essential (primary) hypertension; E78.5 Hyperlipidemia, unspecified; F17.290 Nicotine dependence, other tobacco product, uncomplicated; D64.9 Anemia, unspecified; E87.1 Hypo-osmolality and hyponatremia; E87.6 Hypokalemia; E87.8 Other disorders of electrolyte and fluid balance, not elsewhere classified; I48.0 Paroxysmal atrial fibrillation; E66.9 Obesity, unspecified; Z68.30 Body mass index [BMI] 30.0-30.9, adult; Z79.01 Long term (current) use of anticoagulants; Z79.82 Long term (current) use of aspirin; Z79.899 Other long term (current) drug therapy; Z95.1 Presence of aortocoronary bypass graft
CPT/HCPCS: 71045; 78582; 80048; 80053; 82550; 82553; 83690; 83735; 84484 ×2; 85025 ×2; 85379; 93005; 96360; 96361 ×2; 99285; A9540; A9558; G0378; 36415

== ENCOUNTER 2018-10-18 13:08 | Outpatient (CLI) | payer MEDICARE, BC ==
--- NOTE | 2018-10-18 15:16 | RAD ---
CHEST 1 VIEW: INDICATION: History of aortocoronary bypass graft. FINDINGS: Cardiomegaly and post CABG change is stable. There is no definite consolidation or pleural effusion. No acute osseous abnormality is noted. There are postsurgical changes of bilateral rotator cuff re pairs. IMPRESSION: Stable cardiomegaly and post coronary artery bypass graft change. POS: [facility]
== END 2018-10-18 13:09 | disposition home or self-care (01) ==
LOC: RAD 13:08
PROVIDERS: ATTEND Internal Medicine Cardiovascular Disease
DX: Z48.812 Encounter for surgical aftercare following surgery on the circulatory system (principal); I51.7 Cardiomegaly; Z95.1 Presence of aortocoronary bypass graft
CPT/HCPCS: 71045

== ENCOUNTER 2019-02-21 10:39 | Outpatient (CLI) | payer MEDICARE, BC ==
--- NOTE | 2019-02-21 13:52 | CT ---
Chest CT scan without IV contrast: HISTORY: Heart disease, pain over upper sternal wire. COMPARISON: Chest one view, 10/18/2018, chest one view, 03/08/2018 FINDINGS: A marker is placed on the skin over the upper sternum at the region of painful concern. Based on prior chest x-ray and today's CT the 2 cranial-most sutures appear to be fractured. The thir d suture does not extend into the bony component of the right side of the sternum. Fourth sternal wire does not involve the bony component of the left side of the sternum. The fifth sternal wire is f ractured. The sixth and seventh more caudal sternal wires are to the left and do not include the right side of the sternal bone. The most superior portion of the sternum is diastased approximately 0 .4 cm, in the midportion of the sternum is diastased approximately 1.6 cm and the more caudal portion of the sternum is diastased approximately 2.0 cm. IMPRESSION: Sternal diastases with findings of the multiple wire sutures as above.
== END 2019-02-21 10:40 | disposition home or self-care (01) ==
LOC: BICCT 10:39
PROVIDERS: ATTEND Thoracic Surgery (Cardiothoracic Vascular Surgery)
DX: I25.118 Atherosclerotic heart disease of native coronary artery with other forms of angina pectoris (principal); Z98.890 Other specified postprocedural states
CPT/HCPCS: 71250

== ENCOUNTER 2022-03-22 11:12 | Outpatient (CLI) | payer MEDICARE, BC | END 2022-03-22 11:13 | disposition home or self-care (01) | LOC: MRI 11:12 | DX: M47.22 Other spondylosis with radiculopathy, cervical region (principal) | CPT/HCPCS: 72141 ==

== ENCOUNTER 2023-04-20 11:30 | Outpatient (CLI) | payer MEDICARE, BC | END 2023-04-20 11:31 | disposition home or self-care (01) | LOC: BICRAD 11:30 | PROVIDERS: ATTEND Nurse Practitioner Family | DX: R05.9 Cough, unspecified (principal); R09.89 Other specified symptoms and signs involving the circulatory and respiratory systems | CPT/HCPCS: 71046 ==